=== PATIENT | female | born 2000 | race Caucasian/White ===

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

== ENCOUNTER 2020-01-13 18:49 | Emergency (ER) | payer MEDICAID, SELFPAY ==
[2020-01-13 18:50] VITALS: BP 151/98; PULSE 111; RESP 20; TEMP 36.3; O2SAT 99; BMI 35.2
--- NOTE | 2020-01-13 18:59 | CT_ITS ---
STUDY: CT BRAIN WITHOUT CONTRAST REASON FOR EXAM: Female, 19 years old. FALL, INJURY TO FOREHEAD AND NOSE, NO LOC RADIATION DOSAGE (If Supplied By Facility): CTDIvol = ( 44.99 ) mGy, DLP = ( 762.36 ) mGycm TECHNIQUE: Transaxial CT imaging of the brain was performed without administration of intravenous contrast material. Individualized dose optimization techniques were used for this CT. COMPARISON: No relevant priors. FINDINGS: Normal soft tissue structures. Normal calvarium. Normal size ventricles and extra-axial spaces for the patient''s age. Normal white matter tracts of the cerebral hemispheres. Normal basal ganglia and thalami. Normal brainstem. Normal cerebellum. There is no intracranial hemorrhage. There are no findings of an acute ischemic infarction. Normal visualized paranasal sinuses. CT/Brain/Head without Contrast IMPRESSION: No fracture or hemorrhage. Electronically Signed: Ray Perdomo MD at 20:00 EDT Tel , Service support ,
--- NOTE | 2020-01-13 18:59 | CT_ITS ---
STUDY: CT CERVICAL SPINE WITHOUT CONTRAST REASON FOR EXAM: Female, 19 years old. FALL, INJURY TO FOREHEAD AND NOSE, NO LOC RADIATION DOSAGE (If Supplied By Facility): CTDIvol = ( 25.44 ) mGy, DLP = ( 557.56 ) mGycm TECHNIQUE: High resolution transaxial imaging was performed without contrast material. Sagittal and coronal images were reconstructed. Individualized dose optimization techniques were used for this CT. COMPARISON: None FINDINGS: Normal craniovertebral junction, anterior atlantoaxial articulation, and odontoid process. Normal cervical alignment. No evidence of significant disc disease. No evidence of significant central canal stenosis. No fractures or dislocations. No significant soft tissue abnormalities. No paraspinal hematomas. CT/Spine Cervical without Contras IMPRESSION: No evidence of acute osseous injury. Please note that MRI is more sensitive than CT in detecting cord injury, ligament injury, and epidural hematoma. If there is clinical concern for any of these entities, MRI correlation should be considered, if possible. Electronically Signed: Rya Perdomo MD at 20:06 EDT Tel , Service support ,
--- NOTE | 2020-01-13 19:00 | CT_ITS ---
STUDY: CT FACIAL BONES WITHOUT CONTRAST REASON FOR EXAM: Female, 19 years old. FALL, INJURY TO FOREHEAD AND NOSE, NO LOC RADIATION DOSAGE (If Supplied By Facility): CTDIvol = ( 29.38 ) mGy, DLP = ( 554.80 ) mGycm TECHNIQUE: The patient was scanned in a multi detector CT scanner. Sagittal and coronal images were reconstructed. Individualized dose optimization techniques were used for this CT. COMPARISON: None. FINDINGS: Normal soft tissue structures. Normal orbital pimentel and orbital contents. Normal nasal bones and anterior nasal spine. Normal facial bones. There is no demonstrated fracture. Normal visualized paranasal sinuses. CT/Sinus/Facial Bone IMPRESSION: No acute osseous injury is evident. Electronically Signed: Ray Perdomo MD at 20:04 EDT Tel , Service support ,
--- NOTE | 2020-01-13 19:02 | ED.DCSUM_ITS ---
- ER Visit Summary Date of Service: 01/13/20 Chief Complaint: Head injury History of Present Illness: The patient is a 19 F presenting with head injury. Patient says she was not feeling well throughout the day. She had an episode of vomiting. She states she was cooking and felt dizzy and fell hitting her head on the counter. She denies loss of consciousness. She was vomiting before and after the fall. She denies abdominal pain. She is unsure if she could be . Denies fever or other complaints. Physical Examination: Vitals are stable. Patient is afebrile. Alert no acute distress. HEENT exam abrasion to forehead, tenderness bridge of nose, no septal hematoma. Neck is mild diffuse tenderness with no step-off Lungs are clear and equal bilaterally. Heart is regular tachycardic Abdomen is soft nontender nondistended. No rebound or guarding Extremities are unremarkable. Skin is warm and dry. No focal neurologic deficit. Remainder of exam is unremarkable. Emergency Department Course and Treatment: She is given IV fluids, Zofran. Chemistries unremarkable. hCG negative. CT head, C-spine, facial bones showed no acute process. On reevaluation her nausea has improved. She was given a dose of morphine IV. On reevaluation, she feels improved. Repeat heart rate is 75. She is resting comfortably. She is advised to follow-up with her primary care physician. Advised return to ED for worsening complaints. Disposition: Discharge home Impression: Concussion without loss of consciousness This note was generated with [employer] dictation software. It may contain incorrect words, spelling, and punctuation that were not noted in review of the chart prior to signing ED Disposition - Plan for ED Patient: Instructions: ED Concussion Referrals: Armani Hurtado MD [Primary Care Provider] -
[2020-01-13] MEDS: Ondansetron 4 MG/2 ML Vial IV (19:13)
[2020-01-13] MEDS: 0.9% Normal Saline 1,000 ML 999 ML IV ×2 (19:16→20:37)
[2020-01-13 19:35] LABS: Anion Gap 7 (5-15); BUN 13 mg/dL (7-18); BUN/Creat Ratio 16.4 RATIO (10-20); Calcium,Total 9.1 mg/dL (8.5-10.1); Chloride 108 mmol/L (98-107); Creatinine, Serum 0.79 mg/dL (0.55-1.02); EST Glomerular Filtration Rate 99 mL/min (>60); Est Glom Filt Rate - Afr Amer 119 mL/min (>60); Estimated Creatinine Clearance 111.38 ml/min; Glucose 101 mg/dL (74-106); Sodium Level 141 mmol/L (136-145)
[2020-01-13 19:48] LABS: Internal QC Validated? YES +Cl - CLEAR BKGD; Pregnancy, Serum, hCG Quali. NEGATIVE Negative
[2020-01-13] MEDS: Morphine 4 MG/ML Syringe IV (20:40)
[2020-01-13 20:42] VITALS: BP 134/79; PULSE 78; RESP 16; O2SAT 100
--- NOTE | 2020-01-13 20:46 | ED.DEP ---
ED Disposition - Plan for ED Patient: Instructions: ED Concussion Referrals: Armani Hurtado MD [Primary Care Provider] -
[2020-01-13 20:59] VITALS: BP 136/76; PULSE 74; RESP 16; O2SAT 98
== END 2020-01-13 21:08 | disposition home or self-care (01) ==
LOC: ED 19:14
PROVIDERS: Emergency Provider Emergency Medicine; PCP Family Medicine
DX: S06.0X0A Concussion without loss of consciousness, initial encounter (principal); W18.30XA Fall on same level, unspecified, initial encounter; Y93.G3 Activity, cooking and baking; Y92.000 Kitchen of unspecified non-institutional (private) residence as the place of occurrence of the external cause; Y99.8 Other external cause status
CPT/HCPCS: 70450; 70486; 72125; 80048; 84703; 96361; 96374; 96375; 99283; J7030; A4216; J2405

== ENCOUNTER 2020-01-28 09:00 | Outpatient (RCR) | payer MEDICAID, SELFPAY ==
--- NOTE | 2020-01-28 11:29 | BH.COMM_ITS ---
Communication Note - Communication with Client Communication Note: Intial Paperwork reviewed and pt gave verbal consent via ZOOM during meeting with therapist on 01/24/20. [place] Suicide screening was also completed. Pt was scheduled to begin IOP groups this AM. Due to technology issues she was unable to participate at length. Plan is to retry again tomorrow.
--- NOTE | 2020-01-28 12:42 | BH.MTP ---
[facility] Treatment Plan - Patient Information Program Physician:: Dr. Zaria Mcwilliams Primary Therapist:: VIVEK Yao - Psychiatric Diagnoses Psychiatric Diagnoses:: Bipolar 1 disorder, most recent episode mixed, severe, without psychosis; PTSD; generalized anxiety disorder Diagnosis Code(s):: F31.63 - Estimated LOS Estimated LOS (in weeks):: 6 Problem/Goal #1 - Problem/Goal #1 Stated Goal:: Client will increase mood stability and decrease depressive symptoms, hopelessness, and passive thoughts of due to Bipolar I through Intensive Outpatient Program. Description of Barriers: Pt's distorted thoughts, chronic passive thoughts of , self-reported difficulties with consistency and follow-through, hx of ptsd impacting pt anxiety management, difficulties in securing consistent childcare services, financial strain, as well as limited healthy supports. Pt also reports chronic physical ailments which impact energy and motivation levels. Functional Impact: Currently MH symptoms are interfering with pt ability to function at baseline. Pt reports difficulties in maintaining consistent employment, increased interpersonal tensions, impacted pt ability to complete daily responsibilities, and resulted in increased mood dysregulation. Reports symptoms include hopelessness, worthlessness, increased racing thoughts and panic, difficulties in maintaining focus and motivation, financial strain, and difficulties completing daily responsibilities. Goal Relevant Strengths/Supports: Pt has a desire to improve her mental health, she is open, and receptive of trying a variety of different treatment approaches. - Objectives Objective #1 Stated Objective: Client will learn and utilize 2-3 healthy coping strategies to improve mood stability and better manage mental health symptoms. Interventions: Therapist will help client develop insight into mental health warning signs and triggers for mood dysregulation, as well as help her find strategies to better manage mood and prevent escalation of depressive symptoms. Discharge Criteria: Client will have met this goal when she can use at least 2 healthy coping strategies that effectively regulate mood and manage depressive symptoms. Target Date: 03/10/20 Review Date: 02/25/20 Objective #2 Stated Objective: Pt will decrease depressive and mood dysregulation symptoms AEB pt?s score on the DSM 5 cross-cutting measure and improve pt?s daily functioning. Interventions: Through groups and individual therapy, pt will be provided with education on common warning signs and triggers for mood dysregulation, cognitive distortions, mistaken beliefs, and identifying and combating negative self-talk. Therapist will assist pt with implementing improved emotion regulation skills, improving ability to complete daily responsibilities, as well as increasing healthy coping strategies. Discharge Criteria: Pt will have met this goal when pt?s score on the DSM 5 cross cutting measure for depression and irritability has been decreased and per pt?s report daily functioning has improved. Target Date: 03/10/20 Review Date: 02/25/20 Problem/Goal #2 - Problem/Goal #2 Stated Goal:: Stabilize anxiety level while increasing ability to function on daily basis. Description of Barriers: Pt's distorted thoughts, chronic passive thoughts of , self-reported difficulties with consistency and follow-through, hx of ptsd impacting pt anxiety management, difficulties in securing consistent childcare services, financial strain, as well as limited healthy supports. Pt also reports chronic physical ailments which impact energy and motivation levels. Functional Impact: Currently MH symptoms are interfering with pt ability to function at baseline. Pt reports difficulties in maintaining consistent employment, increased interpersonal tensions, impacted pt ability to complete daily responsibilities, and resulted in increased mood dysregulation. Reports symptoms include hopelessness, worthlessness, increased racing thoughts and panic, difficulties in maintaining focus and motivation, financial strain, and difficulties completing daily responsibilities. Goal Relevant Strengths/Supports: Pt has a desire to improve her mental health, she is open, and receptive of trying a variety of different treatment approaches. - Objectives Objective #1 Stated Objective: Client will learn and implement 2-3 calming skills to reduce overall anxiety and better manage trauma and anxiety related symptoms. Interventions: Therapist will aid client in identifying personal warning signs and triggers for anxiety, as well as teach client calming/relaxation skills and how to apply these skills to everyday life when experiencing increased anxiety or recognizing a personal warning signs. Discharge Criteria: Client will have achieved this goal when can verbalize at least 2 warning signs and calming strategies and have practiced techniques to help reduce anxiety. Target Date: 03/10/20 Review Date: 02/25/20 Objective #2 Stated Objective: Pt will decrease anxious symptoms AEB pt?s score on the DSM 5 cross-cutting measure improve pt?s daily functioning. Interventions: Through groups and individual therapy, pt will be provided education about anxiety?s impact on body and common physiological reaction to anxiety. Therapist will teach pt appropriate breathing techniques and build healthy coping skills to manage daily anxieties. Discharge Criteria: Pt will have met this goal when pt?s score on the DSM 5 cross cutting measure for anxiety has been decreased and per pt?s report daily functioning has improved. Target Date: 03/10/20 Review Date: 02/25/20
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
--- NOTE | 2020-01-29 11:42 | BH.NA ---
Physical Data - Vital Signs Pulse Rate: 84 Blood Pressure: 118/78 - Height/Weight Height: 1.7 m - stated Weight:: 97.522 kg - stated Weight in Pounds: 215.0 lbs Nutritional History - Appetite Nutritional Instructions:: If client shows signs of a swallowing problem, weight change of 10 pounds or more in the last month, or is on a diabetic diet, the physician will review and request a dietitian consult, as appropriate. All unintentional weight loss will be referred to the physician for decision on need for dietitian consult. Describe your appetite:: Good Have you noticed a change in your eating habits lately?: No - Client states appetite is ok Functional Assessment - Sleep Pattern Describe any problems with sleeping: Client states sleep is ok and getting approximately 6-8 hours nightly. - Activities Motor Activity:: Functional Sensory/Communication Assess - Communication Problems Do you have difficulty understanding what people are saying?: No Medical Problems/History - Respiratory Conditions Respiratory: Asthma - Family History Family History: Family History (Last Reviewed 04/10/19 @ 08:58 by Halina Hines) Other CVA (cerebral vascular accident) Colon cancer Heart disease Hypertension - Additional History Additional comments:: Client states h/o Anxiety, Bipolar 1 disorder, PTSD, Lupus Surgical History - Surgical History Have you had any surgeries? If so, list type and date:: Yes - , Lt knee Substance Abuse - Substance Abuse Please describe substance abuse in the last 30 days:: Client denies past or current use of alcohol. Client states past use of smoking tabacco for approximately one year but has since quit when law changed. Client denies past or current substance use. Client states consumes caffiene, drinking coffee daily. Mental Status Summary - Mental Status Significant Findings/Observations on Appearance and Mood:: Client is alert and oriented x4. Client is casually groomed. Client is cooperative with assessment, makes good eye contact during conversation. Client's speech with normal rate and volume, coherent, and spontaneous. Client appears mildly depressed and moderately anxious during assessment. Client tearful during assessment at times. Client makes logical associations, normal processing. Client denies delusions and hallucinations, none evident. Client appears with good insight and judgement. Suicide Assessment - Suicidal Ideation Are you currently or have you been suicidal in the past?: No - Client denies current SI/HI Suicidal Intentional Rating Scale (SIRS): Suicidal thoughts (past) - Client states that she has had past SI but denies current SI. Physician Notification: If Active suicidal thoughts/Will not contract for safety is checked, contact physician and document in the Physician Notification section below. Past Psychiatric History - MH Treatment Hx Past Psychiatric Medications:: Client states that she has been on past psychiatric medications consisting of; Trazadone, Risperidal, Zoloft, Ambien, an antianxiety of unknown name, and more recently stopped taking both Lexapro and Buspar approximately 4 days ago as she felt they were not working. Age of first mental health symptoms: Client states she was first diagnosed with mental health condition at 10yo. Describe (age, circumstance, etc) any past hospitalizations: Client states that she was first hospitalized at 9-10yo at [facility], states her last hospitalization was at 17yo. Client states has had multiple hospitalizations, 14 psych admits as an adolescent. Current providers for mental health treatment (counselor, psychiatrist, case assistant, etc.): Client states that she sees a therapist[facility] at [facility]. Client states that she last seen a psychiatrist about one month ago and has stopped seeing psychiatrist d/t personal chose. Fall Risk Assessment - Age Age: Less than 60 - Mental Status Mental Status: Willing & able to ask for assistance when needed - Physical Status Physical Status: No problems - Impairments Impairments: None - Elimination Elimination: Continent AND independent - Gait or Balance Gait or Balance: Walks independently - Hx of Falls History of falls in the past 6 months: No known history - Medications/Substances Medications/substances used within the past 24 hours or ordered to administer: None of the medications/substances list above - Total Score Total Points:: 0 RN Summary of Impressions - Impressions Recommendations: Include psychiatric and medical issues, treatment planning recommendations, and discharge planning needs. Impressions: Psychiatric Issues: Bipolar 1 disorder, most recent episode mixed, severe, without psychosis; PTSD; generalized anxiety disorder - Level of Care How do the client's current symptoms and functional deficits support need for this level of care?: Client details onset of current episode, stating it became worse around 9 months ago after having her child. Client states that she has had fleeting SI and self injurious behavior consisting of cutting, last cut her Left wrist last week- site appears well healed. Client reports current stressors; that she confided in a friend and that friend turned around and called CPS on her, her upbringing with her mother, and had to attend court this morning for a traffic violation that inhabited child endangerment. Client states that she has been randomingly crying and having panic attacks. IOP will promote gains and prevent further decompensation while providing social support and skills training.
[2020-01-29 12:45] VITALS: BP 118/78; PULSE 84
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
--- NOTE | 2020-01-29 13:10 | BH.DR.ITP ---
Initial Treatment Plan - Patient Information Visit Information: ADMISSION DATE: EXPECTED LOS: 4-6 weeks - Problems/Symptoms Problem #1:: Erratic moods Symptom:: Depression, hopelessness, worthlessness, low energy and motivation, passive thoughts, self-harm Problem #2:: Anxiety Symptom:: worry, panic attacks, avoidance, flashbacks, re-experiencing, rumination
--- NOTE | 2020-01-30 09:03 | BH.SGPN.GN ---
Behaviors/Verbalizations/Mental Status: []Client alert and oriented, neatly dressed and groomed. Eye contact fair. Motor activity appropriate. Speech within normal limits. Affect unable to gather due to wearing a mask for COVID-19 protocol, mood depressed, anxious, irritable. Thoughts linear, logical, no signs of hallucinations or delusions. Reviewed client?s symptom tracker, no risk for suicidal ideation, plan, or intent as of 01/30/20. Client Response/Progress/Benefit: []Client responded somewhat well to session, listening attentively to peers, but declining to share. Client appeared receptive to supportive statements from peers as they attempted to make client feel welcome to IOP and normalize anxiety in a group setting. Client declined to share her stressors and positives today. Appeared to benefit from gaining support from peers. No progress at this time. Will continue IOP tx to prevent decompensation, maintain safety, and increase use of healthy coping skills. Narrative Note: []
--- NOTE | 2020-02-03 09:05 | BH.SGPN.GN ---
Behaviors/Verbalizations/Mental Status: [] Client alert and oriented, casual dress. Eye contact fair to good. Motor activity appropriate. Speech within normal limits. Affect unable to gather due to client wearing a mask for COVID-19 protocol, mood depressed and anxious. Thoughts linear, logical, no signs of hallucinations or delusions. Reviewed client?s symptom tracker, no signs of suicidal ideation, plan, or intent as of today. Client Response/Progress/Benefit: []Pt receptive of session, engaged throughout. Reports feeling mixed, but mostly anxious today as she is still adjusting to the group environment and is nervous but excited to begin individual treatment component of the program. Reports she has been struggling with knowing how to best manage her anxiety and depression as she has not previously learned healthy means for coping. Pt expressed hoping to improve coping skills and increase self-esteem. Expressed that she recently has been struggling with depression as well. Receptive of feedback from the group regarding boundary setting as a means of improving self-esteem, however noted struggling to follow-through with healthy boundaries. Pt able to current mental health wins as using opposite action to keep from staying in bed and took her son to the park. Additional win was beginning to feel like her current medication is starting to help. Pt appeared to benefit from support and structure of the group. Will continue IOP tx to promote more consistent mood stability, improve daily functioning, and prevent decompensation. Narrative Note: []
--- NOTE | 2020-02-03 11:16 | BH.SGPN.GN ---
Behaviors/Verbalizations/Mental Status: []Client alert and oriented, casually dressed and groomed. Eye contact good. Motor activity appropriate. Speech within normal limits. Affect unable to gather due to client wearing a mask for COVID-19 protocol, mood depressed. Thoughts linear, logical, no signs of hallucinations or delusions. Client Response/Progress/Benefit: []Client engaged participant as evidenced by client taking notes and listening attentively to peers. Client participated in the discussion of how each resiliency component can help increase personal resiliency. Client identified resiliency traits she currently possesses and then identified what trait she would like to improve. Client reports belief she has been using the resiliency trait of making connections. Client stated she would like to work on avoiding seeing crises as insurmountable. Client reported ?when I?m in crisis I can?t think past it.? Client shared she would like to improve her crisis coping skills. Client appeared to benefit from increasing insight to ways in which client can improve resilience to adversity and daily stressors. Client to continue IOP tx to prevent decompensation, improve emotional regulation skills, and maintain safety. Narrative Note: []
--- NOTE | 2020-02-03 15:07 | BH.MDN_ITS ---
Multi-Disciplinary Note - Note 45-min Individual Time Started:: 10:20 Date: 02/03/20 Purpose of session/treatment goals addressed:: The purpose of this session was to gather information on client's current stressors, symptoms, and treatment goals. Another goal was to build rapport and provide psychoeducation on depression maintenance cycles and calming skills. Eye Contact:: Good Motor Activity:: Appropriate Appearance:: Casual Speech:: Appropriate Mood:: Anxious, Depressed Affect:: Congruent Thoughts:: Linear, Logical, No evidence of hallucinations/delusions noted Staff Interventions:: Therapist used active listening and open-ended questions to explore client's current stressors, symptoms, history, and treatment goals. Therapist used strengths perspective to build rapport and help client identify personal resilience factors. Therapist provided psychoeducation on anxiety, depression, and maintenance cycles. Therapist began to review with client how common unhealthy coping skills develop and discussed healthy alternatives. Client Response:: Client responded well to session, open to meeting with therapist. Client willing to share about her personal history and events leading up to [facility] level of care. Client stated that she was referred to the IOP program by her individual therapist, Nhi, at [facility] for increased depression, anxiety, and PTSD related symptoms following the of her son 9 months ago. Client reports her symptoms were further exacerbated when she disclosed information about her childhood to a friend who did not believe client and informed child protective services that she was psychotic and an unfit mother. Client reports this further damaged her ability to trust others as she has already struggled with this in the past. Reports she has been in and out of therapy since childhood and most recently [facility] he left for another agency. Client now works with Nhi through [employer]. Shared that although she initially was reluctant to begin the IOP program she is now looking forward to better learning how to manage her emotions and symptoms of PTSD, as well as improve overall ability to find healthier balance in her life. Client identified her strengths for therapy to include; being a caring mother and , being a dedicated employee, motivated to improve her mental health, and willing to learn new things. Client also identified current struggles which included; feeling overwhelmed, lack of support in the area, financial stress, feeling her mental health needs are not being taken seriously, anxiety and recent traumatic flashbacks/dreams, increased guilt about her depression, and fears her mental health will negatively impact her son. Client receptive to learning more about her mental health, the cycle of depression, and gaining healthy coping skills. Client shared she wants to work on managing stress/increased parental responsibilities, reducing anxiety, and improving depression management. Risks/Concerns:: Client denies any active suicidal ideations, plan, or intent as of 02/03/20. Client was future oriented throughout session. Reports her son and as primary protective factors. Progress Toward Goals/Plan:: Client new to IOP tx. Client referred to IOP program by individual therapist for worsening depression and anxiety, including passive thoughts of . Denies any current suicidal thoughts. Currently endorses a depressed mood, irritability, ruminating thoughts resulting in increased anxiety, negative thinking, low motivation, and apathy. Client shared she has limited social supports and difficulties trusting others due to being hurt in the past. Receptive to learning more about her mental health and gaining coping skills. Will continue IOP tx to prevent decompensation, improve daily functioning, and reduce intensity and duration of symptoms. Time Stopped:: 11:05
== END 2020-02-04 23:59 ==
LOC: BHIOP 09:00
PROVIDERS: PCP Family Medicine; Referring Provider Psychiatry & Neurology Psychiatry; Visit Provider Psychiatry & Neurology Psychiatry
DX: F31.63 Bipolar disorder, current episode mixed, severe, without psychotic features (principal); F41.1 Generalized anxiety disorder; F43.10 Post-traumatic stress disorder, unspecified; Z79.899 Other long term (current) drug therapy; Z87.891 Personal history of nicotine dependence; Z91.5 Personal history of self-harm; Z62.810 Personal history of physical and sexual abuse in childhood
CPT/HCPCS: 90792; H0035; H2012; T1002; 90834

== ENCOUNTER 2020-02-05 09:00 | Outpatient (RCR) | payer MEDICAID, SELFPAY ==
[2020-02-05 00:39] VITALS: BP 118/78; PULSE 84
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
--- NOTE | 2020-02-05 13:42 | PCM.BH.PN_ITS ---
Progress Note Progress Note: History of Present Illness/Interim History: [] The patient is a 19-year-old female with a history of bipolar disorder, anxiety and PTSD who is seen in follow-up at the [facility] IOP program. I last saw the patient 1 week ago and at that time she was started on Latuda for her bipolar depression. The patient complains of nausea and vomiting and irritability due to the Latuda. She has taken it for about 1 week and takes it with a meal in the evening. She says her mood she feels is better on the Latuda but she still has some anger and irritability. She is vomiting 20 to 30 minutes after she takes her Latuda. Patient is enjoying the IOP program so far and she feels she is learning skills that will help her deal with her psychiatric issues. Her mood remains depressed and she is really only slightly better than 1 week ago. She denies any suicidal ideation and has much less thoughts of . She denies hallucinations or delusions or any other symptoms. Current Psychiatric Medications: [] Latuda 40 mg p.o. in the evening with food. BuSpar 10 mg p.o. twice a day. She DC'd her Lexapro 1 week ago. Mental Status Examination: [] She is a 19-year-old female who is seen wearing a mask due to the pandemic. She is casually dressed and groomed with good hygiene. She is cooperative during the interview and has no psychomotor agitation or retardation. Eye contact is good. Speech is normal rate and rhythm and fluent with no pressure. Her mood is depressed. Her affect is constricted but there is no evidence of tears. Thought processes organized and goal-directed. Thought content: No evidence of suicidal or homicidal ideation. There is much less thoughts that are passive that she would not care if she . She did not note denies any cutting. Judgment is limited but intact. Insight: Some present. Impulsivity: Moderate. Diagnoses: [] Grawn I: [] Bipolar 1 disorder, most recent episode mixed, severe, without psychosis; PTSD; generalized anxiety disorder. Grawn II: [] Strong cluster B traits Grawn III: [] Negative Grawn IV:[]] Primary support issues Plan: []the patient will continue the IOP program at [facility] as the structure, support, education, individual and group therapy will hopefully prevent worsening of the patient's symptoms which might require hospitalization. The patient felt safe during the interview and if any time she does not feel safe she will let us know or go to the emergency room. The risk, options, possible side effects and complications of the medication were discussed with the patient and she understands and accepts these. She agrees to stop the Latuda due to her side effects. Because the patient did well on Risperdal in the past she agrees to try in Alcazar or paliperidone which is similar but has less of the side effects that Risperdal has. She will start with Invega 1.5 mg p.o. daily. A prescription was sent in for this. I will see the patient in 1 week in follow-up. She will continue to follow-up with her outpatient providers.
--- NOTE | 2020-02-10 09:05 | BH.SGPN.GN ---
Behaviors/Verbalizations/Mental Status: [] Eye contact is good. Motor activity is appropriate. Appearance is casual. Speech is Appropriate. Mood is anxious. Affect is congruent. Thoughts are linear and logical. No evidence of psychosis. Reviewed daily check in sheet and no reports of suicidal ideations or intent. Client Response/Progress/Benefit: [] Pt participated at time during the group discussions. Daily symptom tracker notes /5 for anxiety, panic, and agitation. Emotion for today is anxious and stressed. Shared with the group that she was terminated from her job last week due to calling off. 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 Panic attack. Also reports verbal arguments with and stress related to finances. Despite these negative events she reports that she actually used some coping skills which included distraction, mindfulness, and thought reframing. Also believes that recent medication change has improved her mood as well. Progress noted per pt report. Benefited from group support, encouragement, and feedback. Will continue in IOP to maintain safety, prevent decompensation, and increase coping skills. Narrative Note: []
--- NOTE | 2020-02-10 11:15 | BH.SGPN.GN ---
Behaviors/Verbalizations/Mental Status: []Client alert and oriented, casually dressed, hygiene appeared to be tended to. Eye contact good. Motor activity appropriate. Speech within normal limits. Affect unable to gather due to wearing a mask for COVID-19 protocol, mood irritable and depressed. Thoughts linear, logical, no signs of hallucinations or delusions Client Response/Progress/Benefit: []Client responded well to session, attentive and mostly passive. Group discussed the negative consequences of not acknowledging one?s strengths. Connected with the benefits of recognizing personal strengths on improving mental health which included: increased self-confidence, increased willingness to try new things, and better management of symptoms. Client able to identify personal strengths she possesses which includes: leadership, persistence, and love. Client did not share how these strengths have helped her or could help client in her mental health journey. Group discussed strategies to help them acknowledge strengths more often. Appeared to benefit from recognizing personal strengths and identifying strategies to increase recognition of strengths. Will continue IOP tx to prevent decompensation of symptoms, learn healthy coping skills, and improve daily functioning. Narrative Note: []
--- NOTE | 2020-02-10 15:13 | BH.MDN ---
Multi-Disciplinary Note - Note 45-min Individual Time Started:: 10:10 Date: 02/10/20 Purpose of session/treatment goals addressed:: Pt requested to speak with a therapist individually due to recent stressors. Eye Contact:: Fair Motor Activity:: Appropriate Appearance:: Casual Speech:: Appropriate Mood:: Irritable, Depressed Affect:: Congruent Thoughts:: Linear, Logical, No evidence of hallucinations/delusions noted Staff Interventions:: utilized active listening and SC techniques. Allowed pt to vent. Praised her for utilizing skills learned in group. Client Response:: Pt shared that she had an emotionally overwhelming weekend. She was let go from her job on Monday due to calling in sick. Verbalized that while she was discussing this with her first line production supervisor she felt disrespected. Reports that her first line production supervisor called her worthless and was extremely rude. Pt began to ruminate on this event and beleived that she was worthless. This along with some verbal arguemts with her caused significant distress. She vented her thoughts, frustrations, and emotions which was the primary reason for the session. Despite the setbacks pt was optimistic as she is hopeful about a new job through a [employer] agency which pays better and has better hours. She also utilized coping skills that she has learned through group which helped minimize her distress. Also feels that the medication that she recently started has also improved her mood. Risks/Concerns:: Denies suicidal ideations, plan, or intent. Protective factors. Future-oriented. Progress Toward Goals/Plan:: Despite setbacks this week progress noted. Pt reports improved mood and increased confidence in her ability to handle stressors. Notes that 3 weeks ago she would have isolated and given up when presented with stressors however this weekend she utilized skills and was able to reframe negative thoughts. Will continue in IOP to increase coping skills, improve functioning, and prevent decompensation. Time Stopped:: 11:00
--- NOTE | 2020-02-12 12:38 | BH.COMM ---
Communication Note - Communication with Client Communication Note: Client scheduled to meet with this therapist for individual sessiojn as well as psychiatry for regular follow-up. Client did not show for scheduled appointments or call to cancel. This therapist reached out to client to follow-up and client indicated her son had been sick all night and therefore was unable to send him to childcare. Client indicates that she will be in group tomorrow for both group and individual sessions.
--- NOTE | 2020-02-13 09:42 | BH.COMM ---
Communication Note - Communication with Client Communication Note: Client scheduled for individual and group sessions on this date, however did not show or call to cancel. Therapist attempted to contact client to follow-up but was unable to reach client. A discrete message was left encouraging client to return this therapist's call and discuss discuss strategies for supporting client in attending more consistently.
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
== END 2020-02-26 14:00 | disposition home or self-care (01) ==
LOC: BHIOP 09:00
PROVIDERS: PCP Family Medicine; Referring Provider Psychiatry & Neurology Psychiatry; Visit Provider Psychiatry & Neurology Psychiatry
DX: F31.63 Bipolar disorder, current episode mixed, severe, without psychotic features (principal); F43.10 Post-traumatic stress disorder, unspecified; F41.1 Generalized anxiety disorder; Z79.899 Other long term (current) drug therapy
CPT/HCPCS: 99214; H0035; H2012; 90834

== ENCOUNTER 2020-04-24 20:59 | Emergency (ER) | payer MEDICAID, SELFPAY ==
[2020-04-24 21:01] VITALS: BP 153/80; PULSE 91; RESP 18; TEMP 36.4; O2SAT 99; BMI 37.3
--- NOTE | 2020-04-24 21:38 | RAD_ITS ---
HISTORY: LEFT KNEE PAIN Technique: Left Knee; AP, lateral, and oblique radiographs Comparison: None available Findings: No acute fracture or dislocation. Osseous mineralization, joint spaces, and alignment otherwise appear preserved as imaged. No focal abnormality or radiopaque foreign body is seen in the surrounding soft tissues. RAD/Knee 4 or More Views IMPRESSION: No acute osseous abnormality identified in the knee. at 2246 Reported and signed by: Ryan Oswald MD Electronically Signed: Ryan Oswald MD at 22:45 EDT Tel , Service support ,
--- NOTE | 2020-04-24 23:13 | ED.VIS.LOWEX ---
History of Present Illness Chief Complaint: Lower Extremity Injury Informant: Patient Onset: Month(s) Context: Gradual Onset Timing: Intermittent, Waxes and wanes Quality of Pain: Sharp, Aching Narrative: Patient is a 20-year-old female with history of hypoglycemia presenting with worsening pain in her left knee. Patient states she is had pain for months that is aching in nature but sometimes becomes sharp and stabbing. She does not have any aggravating or alleviating factors. She feels that sometimes her knee gives out on her. Tonight she was at work and she went to stop a shopping carts when she lost her balance and fell. She denies any new injury to her knee but decided to get it evaluated because is been going on for so long. Patient is not been taking anything for pain including Tylenol or ibuprofen. She does like she has some swelling of her knee. No numbness or tingling. No other complaints at this time. Past Medical History - Allergies and Home Meds Allergies/Adverse Reactions: Allergies zolpidem [From Ambien] Adverse Reaction (Verified 04/24/20 21:03) Other HALLUCINATIONS Primary Care Physician: Armani Hurtado MD [Primary Care Provider] - Past Medical History: - - hypoglycemia Surgical History: tonsillectomy Smoking Status: Never smoker Review of Systems General: Denies: Chills, Fever, Sweats Eyes: Denies: Visual changes - bilaterally, Diplopia ENT: Denies: Rhinorrhea, Sore throat Cardiovascular: Denies: Chest pain, Palpitations Respiratory: Denies: Dyspnea, Cough, Dyspnea on exertion Gastrointestinal: Denies: Abdominal pain, Nausea, Vomiting, Diarrhea, Melena, Hematochezia Genitourinary: Denies: Dysuria, Hematuria, Frequency Musculoskeletal: Reports: Swelling - left knee , Extremity Pain - left knee . Denies: Back pain Skin: Denies: Rash, Wounds Neurological: Denies: Headache, Weakness, Numbness Physical Exam Vital Signs/Narrative: Vital Signs Temp Pulse Resp BP Pulse Ox 04/24/20 21:01 97.6 F L 91 18 153/80 H 99 Inital Vital Signs reviewed: Yes - Extremity Exam Left Hip: Negative for: Deformity, Edema, Limited ROM Left Femur: Negative for: Deformity, Edema, Limited ROM Left Knee: Edema, - - Mild increased laxity with medial stress of the knee. Negative anterior and posterior drawer test. No significant effusion or warmth appreciated.. Negative for: Deformity, Limited ROM Left Tib Fib: Negative for: Deformity, Edema, Hematoma, Limited ROM Left Ankle: Negative for: Deformity, Edema, Limited ROM Left Foot: - - 2+ DP pulses. Negative for: Deformity, Edema, Hematoma, Limited ROM General: Well nourished, Well developed Head: Normocephalic, Atraumatic Eyes: Perrl, EOMI ENT: No Trauma, Moist Mucous Membranes Neck: Nontender, Full ROM Cardiovascular: Regular rate, Regular rhythm, No murmurs Respiratory: No distress, CTA bilaterally, Chest nontender Abdomen: Soft, Nontender Back: Nontender Skin: Normal color, No rash Neurological: Alert, Oriented x3, Cranial nerves II-XII grossly intact, Normal Strength, Normal Sensation Psychological: Normal affect Diagnostic/Tx/Re-eval Clinical Impression(s) from Imaging Studies Knee X-Ray 04/24/20 21:38 IMPRESSION: No acute osseous abnormality identified in the knee. at 2246 Reported and signed by: Ryan Oswald MD Electronically Signed: Ryan Oswald MD at 22:45 EDT Tel , Service support , - Medical Decision Making Patient evaluated for atraumatic left knee pain is been worsening over the past few months. I question she has a meniscal injury given that she does have clean of the knee. She will be given orthopedics for follow-up. She was started on NSAID therapy. She is given an Saurabh wrap as well. She is counseled on rice therapy. X-rays not show any acute process. Patient is counseled on signs and symptoms requiring return to the emergency room. Patient verbalizes agreement and understand this plan. Patient discharged home in stable and improved condition. ED Disposition - Plan for ED Patient: Disposition: Home or Assisted Living Diagnosis: Left knee pain Instructions: ED Knee Pain [facility] Prescriptions: Ibuprofen [Motrin] 600 mg PO Q6H PRN PRN #20 tab PRN Reason: Pain Score 1-10/10 Transmission Status: Pending to [facility] Referrals: Armani Hurtado MD [Primary Care Provider] - Eneida Talavera DO [STAFF PHYSICIAN] - Additional Instructions: Please take the anti-inflammatories, ibuprofen, up to 4 times a day as needed for pain and this will help with inflammation. Wear an Saurabh wrap especially at work to help with stability of the knee. Follow-up with orthopedics. Call Monday to schedule appointment.
[2020-04-24] MEDS: Ibuprofen 600 MG Tablet PO (23:16)
[2020-04-25] VITALS: PULSE 69; RESP 15; O2SAT 98
== END 2020-04-25 00:02 | disposition home or self-care (01) ==
PROVIDERS: Emergency Provider Emergency Medicine; PCP Family Medicine
DX: M25.562 Pain in left knee (principal)
CPT/HCPCS: 73564; 99283

== ENCOUNTER 2020-05-03 21:46 | Emergency (ER) | payer MEDICAID, SELFPAY ==
[2020-05-03 21:47] VITALS: BP 143/101; PULSE 120; RESP 18; TEMP 37.1; O2SAT 99; BMI 37.5
--- NOTE | 2020-05-03 21:55 | ED.DCSUM_ITS ---
History of Present Illness Chief Complaint: Shortness of Breath Informant: Patient Onset: Days Context: Gradual Onset Timing: Continuous Current Severity: Moderate Maximum Severity: Moderate Narrative: Patient is a 20-year-old female with medical history significant for asthma the presents to the emergency department with cough and dyspnea. The patient states her symptoms again about 3 days ago. She is had some nasal congestion and a dry cough. She states that she is tried her nebulizer with little improvement. She is had low-grade fevers for 2 days. The patient did have similar symptoms in November. She was tested for COVID-19. It was negative, however she had bilateral patchy infiltrates on a chest CT. She states that she seemed to have recovered from that. She states that she has not been on any prednisone burst for at least 6 months. Prior similar symptoms: Yes Recent Illness/Hospitalization: No Past Medical History - Allergies and Home Meds Allergies/Adverse Reactions: Allergies zolpidem [From Ambien] Adverse Reaction (Verified 05/03/20 21:47) Other HALLUCINATIONS Primary Care Physician: Armani Hurtado MD [Primary Care Provider] - Prior records reviewed: Yes Past Medical History: - - Asthma Surgical History: noncontributory, tonsillectomy Smoking Status: Never smoker Review of Systems General: Reports: Fever. Denies: Chills, Sweats Eyes: Denies: Visual changes - bilaterally, Diplopia ENT: Denies: Rhinorrhea, Sore throat Cardiovascular: Denies: Chest pain, Palpitations Respiratory: Reports: Dyspnea, Cough. Denies: Dyspnea on exertion Gastrointestinal: Denies: Abdominal pain, Nausea, Vomiting, Diarrhea, Melena, Hematochezia Genitourinary: Denies: Dysuria, Hematuria, Frequency Musculoskeletal: Denies: Back pain, Extremity Pain Skin: Denies: Rash, Wounds Neurological: Denies: Headache, Weakness, Numbness Physical Exam Vital Signs/Narrative: Vital Signs Temp Pulse Resp BP Pulse Ox 05/03/20 21:47 98.8 F 120 H 18 143/101 H 99 Inital Vital Signs reviewed: Yes General: Well nourished, Well developed, No Acute Distress Head: Normocephalic, Atraumatic Eyes: Perrl, EOMI ENT: Moist mucous membranes, No rhinorrhea Neck: Supple, Nontender Cardiovascular: Regular rate, Regular rhythm, No murmurs Respiratory: No distress, Chest nontender, Wheezing Abdomen: Soft, Nontender, Nondistended, Normal bowel sounds Back: Nontender, Normal Inspection Extremities: Nontender, No edema Skin: Normal color, No rash Neurological: Alert, Oriented x3, Cranial nerves II-XII grossly intact, Normal Strength, Normal Sensation Psychological: Normal affect, Normal Mood Diagnostic/Tx/Re-eval Clinical Impression(s) from Imaging Studies Chest X-Ray 05/03/20 22:00 IMPRESSION: Normal x-ray examination of the chest. Electronically Signed: Bart Zayas MD at 22:11 EDT , Service support , - Medical Decision Making Patient presents with cough, shortness of breath, and fever. I do feel that she likely has upper respiratory illness that is exacerbated her asthma. She had some prolonged expiration with a scant wheeze. The patient was given predni sone, Tylenol, and nebulized breathing treatment. Chest x-ray is obtained. There is no focal infiltrative process. After treatment, she is feeling improved. Given her fevers for 3 days, I am going to cover her with Zithromax and prednisone. She has no tachypnea or hypoxia. She speaks in full sentences. She has no respiratory distress. I do feel that she is safe for outpatient therapy. She is comfortable with this plan of care. Impression 1. Acute bronchitis with bronchospasm ED Disposition - Plan for ED Patient: Instructions: ED Upper Resp Infec Abx Tx Prescriptions: Prednisone [Deltasone] 60 mg PO DAILY #15 tab Prescription Printed Azithromycin [Zithromax] 250 mg PO DAILY #4 tab Prescription Printed Referrals: Armani Hurtado MD [Primary Care Provider] -
[2020-05-03 22:00] VITALS: BP 128/72; PULSE 89; RESP 16; O2SAT 98
--- NOTE | 2020-05-03 22:00 | RAD_ITS ---
STUDY: X-RAY CHEST REASON FOR EXAM: Female, 20 years old. dry cough x 1 week, fever, chills TECHNIQUE: Frontal and lateral views of the chest. COMPARISON: 11/11/2019 FINDINGS: The lungs are clear and expanded. There is no demonstrated pleural abnormality. Normal size heart. Normal mediastinum and laith. Normal visualized pulmonary arteries. Normal visualized aortic arch and descending thoracic aorta. Normal visualized thoracic spine. Normal visualized ribs, clavicles, and shoulders. There is no demonstrated abnormality of the visualized soft tissue structures of the upper abdomen. RAD/Chest PA and Lateral IMPRESSION: Normal x-ray examination of the chest. Electronically Signed: Bart Zayas MD at 22:11 EDT , Service support ,
[2020-05-03 22:08] VITALS: PULSE 118; RESP 16
[2020-05-03] MEDS: Ipratropium/Albuterol Sulfate 3 ML AMPUL.NEB INHALATION (22:08)
[2020-05-03] MEDS: Azithromycin 250 MG Tablet 500 MG PO (22:31)
[2020-05-03] MEDS: predniSONE 20 MG Tablet 60 MG PO (22:31)
[2020-05-03] MEDS: Acetaminophen 500 MG Tablet 1000 MG PO (22:32)
== END 2020-05-03 22:30 | disposition home or self-care (01) ==
LOC: ED 22:30
PROVIDERS: Emergency Provider Emergency Medicine; PCP Family Medicine
DX: J20.9 Acute bronchitis, unspecified (principal)
CPT/HCPCS: 71046; 94640; 99282

== ENCOUNTER 2020-05-30 20:46 | Emergency (ER) | payer MEDICAID, SELFPAY ==
[2020-05-30 20:46] VITALS: BP 140/82; PULSE 87; RESP 16; TEMP 36.4; O2SAT 98; BMI 37.2
--- NOTE | 2020-05-30 20:53 | CT_ITS ---
STUDY: CT BRAIN WITHOUT CONTRAST REASON FOR EXAM: Female, 20 years old. MIGRAINE X 3 WEEKS, pain all over head. Not pergnant-pt shielded RADIATION DOSAGE (If Supplied By Facility): CTDIvol = ( 44.99 ) mGy, DLP = ( 796.11 ) mGycm TECHNIQUE: Transaxial CT imaging of the brain was performed without administration of intravenous contrast material. Individualized dose optimization techniques were used for this CT. COMPARISON: Prior head CT exam of 01/13/2020 FINDINGS: Normal soft tissue structures. Normal calvarium. Normal size ventricles and extra-axial spaces for the patient''s age. Normal white matter tracts of the cerebral hemispheres. Normal basal ganglia and thalami. Normal brainstem. Normal cerebellum. There is no intracranial hemorrhage. There are no findings of an acute ischemic infarction. Normal visualized paranasal sinuses. CT/Brain/Head without Contrast IMPRESSION: Normal unenhanced CT scan of the brain. Electronically Signed: Trinidad Stanford MD at 21:50 EDT , Service support ,
--- NOTE | 2020-05-30 20:54 | ED.DCSUM_ITS ---
History of Present Illness Chief Complaint: Headache Informant: Patient Onset: Weeks Context: Gradual Onset Timing: Continuous Current Severity: Moderate Maximum Severity: Moderate Narrative: The patient presents to the emergency department migraine headache. Patient states that she has had a persistent headache for the past 2 or 3 weeks. She denies any significant history of migraines. She describes a dull pressure behind her eyes. She does describe photophobia and phonophobia. She has been nauseated without vomiting. She went to urgent care last week and was counseled on hydration and ibuprofen. She states that she has been doing that with no resolution of her headache. She denies neck pain. She denies any fevers or chills. She denies any visual change. She states she is otherwise been in her normal state of health. Prior similar symptoms: No Recent Illness/Hospitalization: No Past Medical History - Allergies and Home Meds Allergies/Adverse Reactions: Allergies zolpidem [From Ambien] Adverse Reaction (Verified 05/30/20 20:48) Other HALLUCINATIONS Primary Care Physician: Armani Hurtado MD [Primary Care Provider] - Prior records reviewed: Yes Past Medical History: None Surgical History: noncontributory, tonsillectomy Smoking Status: Never smoker Review of Systems General: Denies: Chills, Fever, Sweats Eyes: Denies: Visual changes - bilaterally, Diplopia ENT: Denies: Rhinorrhea, Sore throat Cardiovascular: Denies: Chest pain, Palpitations Respiratory: Denies: Dyspnea, Cough, Dyspnea on exertion Gastrointestinal: Denies: Abdominal pain, Nausea, Vomiting, Diarrhea, Melena, Hematochezia Genitourinary: Denies: Dysuria, Hematuria, Frequency Musculoskeletal: Denies: Back pain, Extremity Pain Skin: Denies: Rash, Wounds Neurological: Denies: Headache, Weakness, Numbness Physical Exam Vital Signs/Narrative: Vital Signs Temp Pulse Resp BP Pulse Ox 05/30/20 20:46 97.5 F L 87 16 140/82 H 98 Inital Vital Signs reviewed: Yes General: Well nourished, Well developed, No Acute Distress Head: Normocephalic, Atraumatic Eyes: Perrl, EOMI ENT: Moist mucous membranes, No rhinorrhea Neck: Supple, Nontender Cardiovascular: Regular rate, Regular rhythm, No murmurs Respiratory: No distress, CTA bilaterally, Chest nontender Abdomen: Soft, Nontender, Nondistended, Normal bowel sounds Back: Nontender, Normal Inspection Extremities: Nontender, No edema Skin: Normal color, No rash Neurological: Alert, Oriented x3, Cranial nerves II-XII grossly intact, Normal Strength, Normal Sensation Psychological: Normal affect, Normal Mood Diagnostic/Tx/Re-eval Clinical Impression(s) from Imaging Studies Brain CT 05/30/20 20:53 IMPRESSION: Normal unenhanced CT scan of the brain. Electronically Signed: Trinidad Stanford MD at 21:50 EDT , Service support , - Medical Decision Making Patient presents with migraine headache. She is not meningitic or enceph alopathic. She states she does not have a significant history of migraines. IV was established. The patient was treated with migraine abortive medications with complete resolution of her headache. Given her lack of history, I did obtain a head CT. This was negative. Given the duration of her symptoms, I do not suspect a dangerous process. I do feel that she is safe for outpatient follow-up. She is comfortable with this plan of care and will be discharged home. Impression 1. Migraine ED Disposition - Plan for ED Patient: Instructions: ED, Migraine (Classical) Referrals: Armani Hurtado MD [Primary Care Provider] -
[2020-05-30] MEDS: 0.9% Normal Saline 1,000 ML 999 ML IV (21:03)
[2020-05-30] MEDS: proCHLORPERazine 10 MG/2 ML Vial IV (21:05)
[2020-05-30] MEDS: Ketorolac 15 MG/ML Vial IV (21:08)
[2020-05-30] MEDS: DiphenhydrAMINE 50 MG/ML Syringe IV (21:10)
[2020-05-30 21:58] VITALS: BP 114/82; PULSE 48; RESP 15
== END 2020-05-30 22:00 | disposition home or self-care (01) ==
LOC: ED 21:12
PROVIDERS: Emergency Provider Emergency Medicine; PCP Family Medicine
DX: G43.909 Migraine, unspecified, not intractable, without status migrainosus (principal)
CPT/HCPCS: 70450; 96374; 96375; 99282

== ENCOUNTER 2023-11-02 05:40 | Emergency (ER) | payer MEDICAID, SELFPAY ==
[2023-11-02 05:41] VITALS: BP 111/74; PULSE 80; RESP 17; TEMP 36.2; O2SAT 98; BMI 42.3
--- NOTE | 2023-11-02 05:50 | EX.ED.DYSGE1 ---
HPI History of Present Illness Chief Complaint: Other, Pain/Inj Narrative Narrative: 23-year-old female presents with left-sided neck pain and muscle spasms that she has had since she woke up this morning. She states that over the last few days since Monday when she was traveling to [place], 6 days ago, she was having neck pain. She is been treating it with Tylenol and heat which has been working. However, she awoke with this morning, muscle spasms mainly on the left side of her neck and inability to turn her head secondary to pain. She denies any fevers or chills, no nausea or vomiting. No other symptoms. Her pain is at the base of her neck and into her left trapezius. She relates history that 2 years ago she tore her left shoulder so she cannot really move her left shoulder that well. Her dropped her off because she states that she is having continued and spasming. [facility] Medical History Anxiety Asthma Bilateral headaches Bipolar 1 disorder Cervicogenic headache Environmental allergies Generalized anxiety disorder Genital herpes simplex Hypoglycemia Lupus Mild hyperemesis gravidarum PTSD (post-traumatic stress disorder) Segmental and somatic dysfunction of cervical region Segmental and somatic dysfunction of lumbar region Segmental and somatic dysfunction of thoracic region Home Medications ibuprofen 600 mg tablet 600 mg PO Q6H PRN PRN Pain Score 1-10/10 #20 tabs 04/24/20 [Rx Last Taken Unknown] azithromycin 250 mg tablet 250 mg PO DAILY #4 tabs 05/03/20 [Rx Last Taken Unknown] prednisone 20 mg tablet 60 mg (3 x 20 mg) PO DAILY #15 tabs 05/03/20 [Rx Last Taken Unknown] Allergy/AdvReac Type Severity Reaction Status Date / Time zolpidem [From Ambien] AdvReac Other Verified 11/02/23 05:46 Family History Other CVA (cerebral vascular accident) Colon cancer Heart disease Hypertension Surgical History History of tonsillectomy and adenoidectomy Left knee injury Previous section Social History Smoking Status: Never smoker alcohol intake: never substance use type: does not use what type of physical activity do you participate in: none ROS ROS ED ROS Narrative Constitutional: No fever, no chills. HEENT: No sore throat. Left-sided neck pain. No loss of vision. No rhinorrhea. Cardiovascular: No chest pain. No palpitations. No pedal edema. Respiratory: No cough, no shortness of breath. Abdominal: No abdominal pain. No nausea. No vomiting. Genitourinary: No dysuria. No hematuria. Musculoskeletal: No myalgias. No arthralgias. Left trapezial pain. Neurologic: No headaches. No dizziness. No lightheadedness. Skin: No rash. No change in color. Psychiatric: No depression. No anxiety. EXAM Physical Exam Narrative Exam Narrative: Afebrile. Vital signs noted. HEENT: Normocephalic. Atraumatic. PERRL, EOMI. Neck soft and supple. No meningismus. Positive muscle spasms left paraspinal musculature. No vertebral point tenderness or bony step-off. Range of motion of neck limited secondary to pain. Cardiovascular: Regular rate and rhythm. No murmurs, rubs, or gallops appreciated. Respiratory: No tachypnea. Lungs clear to auscultation bilaterally. Gastrointestinal: Abdomen soft, nontender, with normoactive bowel sounds. No rebound or guarding. Neurological: Awake. Alert. Nonfocal, nonlateralizing. Skin: No rash. Normal color. No pallor. Musculoskeletal: No pedal edema. Neurovascular intact bilateral upper extremities with palpable radial pulses bilaterally. Mild tenderness to palpation base of left neck with noted spasms and tenderness into the trapezius. Const Vital Signs: 11/02/23 05:41 11/02/23 05:46 Temperature 97.1 F L Temperature Source Temporal Pulse Rate 80 Respiratory Rate 17 Respiratory Effort Normal Respiratory Pattern Normal Blood Pressure 111/74 Blood Pressure Mean 86 Pulse Ox 98 Oxygen Delivery Method Room Air MDM MDM MDM Narrative Medical decision making narrative: I do not feel that imaging is indicated. Her pain is all along the left paraspinal musculature and trapezius. She has not had trauma so I have low suspicion for fracture. In order to treat her torticollis/muscle spasms, intramuscular injections of Toradol and Norflex were given. I do not feel that she requires laboratory work. She states that since she had her baby 8 months ago, that she is more prone to blood clots. I do not feel that this is indicative of a pulmonary embolism or vaso-occlusive crisis. I reviewed her prior visits that she has had problems with her back. She is reassured. Upon repeat examination at approximately 6:45 AM, she is resting comfortably on the cot, lying on her right side, looking at her cellular telephone. She states that she feels mildly improved. Her neck is still sore, but she can move it a little bit better, and has better range of motion. At this point in time, I feel she can be discharged safely home with follow-up to her primary care provider. She will take [id number] medications like Tylenol and ibuprofen, but I will write her prescription for Flexeril. She will follow-up with her primary care provider. Return instructions to the emergency department were reviewed. Disposition is discharged home in stable condition. History & Record Review Discussion w/independent historian: Patient Additional record(s) reviewed:: Prior ED visit (Noncontributory to current chief complaint.) Discharge Plan Triage Chief Complaint: Other, Pain/Inj ED Provider: Tyler Frank Dx/Rx/DC Orders Clinical Impression: Neck muscle spasm, Neck pain Instructions: ED Neck Pain, ED Neck Spasm, No Trauma Prescriptions: No Action ibuprofen 600 MG tablet 600 mg PO Q6H PRN PRN (Reason: Pain Score 1-10/10) Qty: 20 0RF azithromycin 250 MG tablet 250 mg PO DAILY Qty: 4 0RF prednisone 20 MG tablet 60 mg PO DAILY Qty: 15 0RF Rx Instructions: With food Primary Care Provider: Care Physician,No Primary Referrals: Armani Hurtado MD [Non-Staff] - 3-5 Days if not improving
[2023-11-02] MEDS: Ketorolac 30 MG/ML Syringe IM (05:59)
[2023-11-02] MEDS: Orphenadrine 60 MG/2 ML Ampul IM (05:59)
[2023-11-02 07:01] VITALS: BP 110/68; PULSE 76; RESP 18; TEMP 36.4; O2SAT 98
== END 2023-11-02 07:02 | disposition home or self-care (01) ==
PROVIDERS: Emergency Provider Emergency Medicine; Visit Provider Emergency Medicine
DX: M62.838 Other muscle spasm (principal); F31.9 Bipolar disorder, unspecified; M54.2 Cervicalgia
CPT/HCPCS: 96372; 99282

== ENCOUNTER 2024-03-03 01:19 | Emergency (ER) | payer MEDICAID, SELFPAY ==
[2024-03-03 01:19] VITALS: BP 128/88; PULSE 93; RESP 15; TEMP 36.3; O2SAT 97; BMI 43.0
--- NOTE | 2024-03-03 01:36 | RAD_ITS ---
INDICATION: pain STEPPED IN A HOLE C/O PAIN TO MEDIAL LT FOOT AND ANKLE EXAMINATION/TECHNIQUE: X-RAY - LEFT XR Ankle Min 3 Views 3 VIEWS COMPARISON: FINDINGS: BONES: No fracture demonstrated. JOINTS: No dislocation. SOFT TISSUES: Unremarkable. RAD/Ankle min 3 Views IMPRESSION: No evidence of fracture. Electronically Signed: Nicole Brooke MD at 2:24 EDT ,
--- NOTE | 2024-03-03 01:36 | RAD_ITS ---
INDICATION: pain STEPPED IN A HOLE C/O PAIN TO MEDIAL LT FOOT AND ANKLE EXAMINATION/TECHNIQUE: X-RAY - LEFT XR Foot Min 3 Views 3 VIEWS COMPARISON: FINDINGS: BONES: No fracture demonstrated. JOINTS: No dislocation. SOFT TISSUES: Unremarkable. RAD/Foot min 3 Views IMPRESSION: No evidence of fracture. Electronically Signed: Nicole Brooke MD at 2:25 EDT ,
--- NOTE | 2024-03-03 01:49 | EDS_ITS ---
HPI History of Present Illness Chief Complaint: Lower Extremity Injury Informant: patient Narrative Narrative: Patient is a 23-year-old female with past medical history of asthma and anxiety and bipolar disorder. She states she was working for [employer] when roughly 30 minutes to an hour ago she stepped in a rabbit hole and rolled her left ankle. She states she had pain and swelling and difficulty walking since that time and with concern for fracture comes in for evaluation. She denies any other injury [facility] Medical History Generalized anxiety disorder PTSD (post-traumatic stress disorder) Bipolar 1 disorder Mild hyperemesis gravidarum Genital herpes simplex Segmental and somatic dysfunction of cervical region Segmental and somatic dysfunction of lumbar region Segmental and somatic dysfunction of thoracic region Cervicogenic headache Lupus Hypoglycemia Bilateral headaches Anxiety Asthma Environmental allergies Home Medications ?Medication ?Instructions ?Recorded ?Last Taken ?Type ibuprofen 600 mg tablet 600 mg PO Q6H PRN PRN Pain Score 04/24/20 Unknown Rx 1-05/16 #20 tabs azithromycin 250 mg tablet 250 mg PO DAILY #4 tabs 05/03/20 Unknown Rx prednisone 20 mg tablet 60 mg (3 x 20 mg) PO DAILY #15 tabs 05/03/20 Unknown Rx cyclobenzaprine 10 mg tablet 10 mg PO TID PRN Muscle Spasm #20 11/02/23 Unknown Rx TABLETS Allergy/AdvReac Type Severity Reaction Status Date / Time zolpidem (From Ambien) AdvReac Other Verified 03/03/24 01:25 Family History Other CVA (cerebral vascular accident) Colon cancer Heart disease Hypertension Surgical History History of tonsillectomy and adenoidectomy Left knee injury Previous section Social History Smoking Status: Never smoker alcohol intake: never substance use type: does not use what type of physical activity do you participate in: none ROS ROS ED Constitutional Constitutional ED: Denies chills or fever(s) ENT ENT ED: Denies sore throat Cardiovascular Cardiovascular: Denies chest pain Respiratory/Chest Respiratory/Chest: Denies cough or dyspnea Gastrointestinal Gastrointestinal: Denies abdominal pain, diarrhea, nausea or vomiting Genitourinary Genitourinary ED: Denies dysuria Musculoskeletal Musculoskeletal: Reports other Details: Positive left ankle and foot pain Integumentary Denies Abrasions Neurologic Neurologic: Denies headache(s) or paresthesias Psychiatric Psychiatric: Reports anxiety Hematologic/Lymphatic Hematologic/Lymphatic: Denies easy bleeding or easy bruising EXAM Physical Exam Const Vital Signs: 03/03/24 01:19 Temperature 97.4 F L Temperature Source Temporal Pulse Rate 93 Respiratory Rate 15 Blood Pressure 128/88 H Blood Pressure Mean 101 Pulse Ox 97 Oxygen Delivery Method Room Air Positive well nourished, well developed and obese General Appearance ED: well developed; Negative for pallor Nutritional Appearance: obese HEENT HEENT Narrative: Normocephalic atraumatic Eyes PERRL and EOMs intact bilaterally General Eye ED: Negative for scleral icterus Neck supple Resp normal respiratory effort and clear to auscultation bilaterally Cardio regular rate and regular rhythm Extremity Extremity Narrative: Left lower extremity is neurovascularly intact. There is soft tissue swelling along the medial and lateral malleolus consistent with history of ankle injury. There is pain on palpation more along the medial aspect of the joint space of the left ankle. No obvious bony deformity or joint effusion. Achilles tendon is intact. There is mild laxity with stressing of the deltoid and tibial talar ligament. Patient also has mild pain with palpation along the first metatarsal of the left foot Remainder of the exam is normal Neuro oriented x3, CN's II-XII intact bilaterally and no sensory deficits noted Sensorium / Orientation: alert Psych mental status grossly normal Skin no rashes or lesions noted Skin Narrative: Mild soft tissue swelling of the left ankle and foot as documented above General Skin Exam: Negative for jaundice or pallor MDM MDM MDM Narrative Medical decision making narrative: Patient arrived to the ER with stable vitals and reported a mechanical injury to her left ankle and foot. Differential diagnosis is for fracture versus dislocation versus sprain. Secondary to his x-rays were obtained. X-rays revealed no acute bony injury. Her exam however does correlate with a grade 2 ankle sprain. Secondary to this should be placed in a walking boot for stabilization but as there is no fracture or dislocation and she is neurovascularly intact there is no need for further intervention and she is otherwise safe for discharge with walking boot for stabilization. History & Record Review Discussion w/independent historian: Patient Radiography Diagnostic Testing: X-ray of the left foot as interpreted by the emergency medicine physician reveals no acute fracture or dislocation X-ray of the left ankle as interpreted by the emergency medicine physician reveals no acute fracture dislocation or joint effusion Discharge Plan Triage Chief Complaint: Lower Extremity Injury ED Provider: Jacob Goldstein Dx/Rx/DC Orders Clinical Impression: Grade 2 ankle sprain, Bipolar 1 disorder, Anxiety Instructions: ED Ankle Sprain (Adult) Prescriptions: No Action ibuprofen 600 MG tablet 600 mg PO Q6H PRN PRN (Reason: Pain Score 1-10/10) Qty: 20 0RF azithromycin 250 MG tablet 250 mg PO DAILY Qty: 4 0RF prednisone 20 MG tablet 60 mg PO DAILY Qty: 15 0RF Rx Instructions: With food cyclobenzaprine 10 mg tablet 10 mg PO TID PRN (Reason: Muscle Spasm) Qty: 20 0RF Primary Care Provider: Care Physician,No Primary Referrals: Viral Nieves DPM [Med Staff - Active Staff] - Care Physician,No Primary [Primary Care Provider] - Activity Restrictions/Additional Instructions: Your x-rays show no acute fracture or dislocation indicating that you sprained your ankle and this will heal spontaneously as long as you wear your walking boot over the next 1 to 2 weeks. Follow-up with podiatry for further evaluation and return to the ER if you have any further concerns or worsening of symptoms. Print Language: Israeli Disposition Disposition: Home, Self Care
[2024-03-03 02:27] VITALS: BP 126/96; PULSE 84; RESP 16; TEMP 36.6; O2SAT 97
== END 2024-03-03 02:50 | disposition home or self-care (01) ==
PROVIDERS: Emergency Provider Emergency Medicine; Visit Provider Emergency Medicine
DX: S93.402A Sprain of unspecified ligament of left ankle, initial encounter (principal); F31.9 Bipolar disorder, unspecified; F41.9 Anxiety disorder, unspecified; J45.909 Unspecified asthma, uncomplicated; X58.XXXA Exposure to other specified factors, initial encounter
CPT/HCPCS: 73610; 73630; 99283

== ENCOUNTER 2024-06-01 18:18 | Emergency (ER) | payer MEDICAID, SELFPAY ==
[2024-06-01 18:20] VITALS: BP 129/90; PULSE 85; RESP 18; TEMP 36.6; O2SAT 97; BMI 41.8
--- NOTE | 2024-06-01 18:32 | EX.ED.DYSGE1 ---
HPI History of Present Illness Chief Complaint: Chest Other Informant: patient Onset/Context/Timing Onset: Days (2) Context: Gradual Onset Timing: Continuous Quality: Sharp Location: Substernal chest Worsened by: Breathing Relieved by: Nothing Narrative Narrative: Patient presents with chest pain that has been getting worse over the past 2 days. Patient describes it as sharp. Patient states it is over the substernal area and radiates into her back. Patient admits to a cough with yellow and green sputum. Patient denies any shortness of breath however. Patient states her pain is worse with deep breathing. Patient states nothing seems to help with her pain. Patient states her child has been sick recently. Patient denies any fevers or chills. [facility] Medical History Generalized anxiety disorder PTSD (post-traumatic stress disorder) Bipolar 1 disorder Mild hyperemesis gravidarum Genital herpes simplex Segmental and somatic dysfunction of cervical region Segmental and somatic dysfunction of lumbar region Segmental and somatic dysfunction of thoracic region Cervicogenic headache Lupus Hypoglycemia Bilateral headaches Anxiety Asthma Environmental allergies Home Medications ?Medication ?Instructions ?Recorded ?Last Taken ?Type ibuprofen 600 mg tablet 600 mg PO Q6H PRN PRN Pain Score 04/24/20 Unknown Rx 1-05/16 #20 tabs azithromycin 250 mg tablet 250 mg PO DAILY #4 tabs 05/03/20 Unknown Rx prednisone 20 mg tablet 60 mg (3 x 20 mg) PO DAILY #15 tabs 05/03/20 Unknown Rx cyclobenzaprine 10 mg tablet 10 mg PO TID PRN Muscle Spasm #20 11/02/23 Unknown Rx TABLETS Allergy/AdvReac Type Severity Reaction Status Date / Time zolpidem (From Ambien) AdvReac Other Verified 06/01/24 18:20 Family History Other CVA (cerebral vascular accident) Colon cancer Heart disease Hypertension Surgical History Previous section Left knee injury History of tonsillectomy and adenoidectomy Social History Smoking Status: Never smoker alcohol intake: never substance use type: does not use what type of physical activity do you participate in: none ROS ROS ED Constitutional Constitutional ED: Denies chills or fever(s) Eyes Eyes: Denies blurry vision or change in vision ENT ENT ED: Denies rhinorrhea or sore throat Cardiovascular Cardiovascular: Reports chest pain; Denies palpitations Respiratory/Chest Respiratory/Chest: Reports cough and sputum; Denies dyspnea Gastrointestinal Gastrointestinal: Denies nausea or vomiting Genitourinary Genitourinary ED: Denies dysuria or hematuria Musculoskeletal Musculoskeletal: Reports back pain; Denies neck pain Integumentary Denies abscess or rash Neurologic Neurologic: Reports headache(s); Denies weakness Allergic/Immunologic Allergic/Immunologic ED: Denies mouth swelling or urticaria EXAM Physical Exam Const Vital Signs: 06/01/24 18:20 06/01/24 20:36 Temperature 98 F Temperature Source Oral Pulse Rate 85 80 Respiratory Rate 18 22 H Blood Pressure 129/90 H Blood Pressure Mean 103 Pulse Ox 97 Oxygen Delivery Method Room Air Positive well nourished and well developed General Appearance ED: well developed and NAD HEENT Reports moist mucous membranes Neck supple and no JVD Resp normal respiratory effort and clear to auscultation bilaterally Cardio regular rate and regular rhythm GI non-tender and non-distended Palpation: soft Neuro oriented x3, CN's II-XII intact bilaterally and no sensory deficits noted Sensorium / Orientation: alert Motor Exam: strength 5/5 throughout Psych mental status grossly normal MDM MDM MDM Narrative Medical decision making narrative: Differential diagnosis includes pneumonia, bronchitis, viral illness, gastroesophageal reflux disease, musculoskeletal pain, cardiac dysrhythmia, and cardiac ischemia. EKG will be obtained to assess for cardiac dysrhythmia and cardiac ischemia. Chest x-ray will be obtained to assess for pneumonia and pneumothorax. COVID-19, influenza, and RSV PCR will be obtained to assess for viral illness. Lab Data Lab results narrative: COVID-19 PCR was reviewed and was negative. Influenza PCR was reviewed and was negative for influenza A and influenza B. RSV PCR was reviewed and was negative. Radiography Chest X-Ray - ED: 2 View, Read by ED Physician, Read by Radiologist and No Acute Disease Diagnostic Testing: Clinical Impression(s) from Imaging Studies Chest X-Ray 06/01/24 18:58 IMPRESSION: No radiographic evidence of acute cardiopulmonary disease. Electronically Signed: Tasha Tamayo MD at 21:13 EDT , PA and lateral chest x-ray was obtained. There are 2 views. On my independent interpretation, lung greenberg are clear. There is normal cardiac silhouette. Bony thorax is normal. There is no acute process noted. Radiologist also interpreted the x-ray and agrees. EKG Initial EKG: Attestation: I personally reviewed and interpreted this EKG as follows: Interpretation: Sinus Rhythm (79) and No Acute Injury Pattern Comments: EKG was obtained. On my independent interpretation, it showed a normal sinus rhythm with a rate of 79. SC interval, QRS interval, and QTc intervals were all normal. [place] was normal. There are no acute ST or T wave changes. Prior EKG tracings: not available for review Prior: No Prior Treatment and Re-Evaluation :: Patient advised of her findings. Patient was instructed to take Tylenol or ibuprofen as needed for pain. Patient was instructed to follow-up with a primary care physician in 5 to 7 days. Patient understood and was agreeable with the plan. All questions were answered. Discharge Plan Triage Chief Complaint: Chest Other ED Provider: Agusto Domingo Dx/Rx/DC Orders Clinical Impression: Chest pain, Anxiety Instructions: ED Chest Pain, Uncertain Cause Prescriptions: No Action ibuprofen 600 MG tablet 600 mg PO Q6H PRN PRN (Reason: Pain Score 1-10/10) Qty: 20 0RF azithromycin 250 MG tablet 250 mg PO DAILY Qty: 4 0RF prednisone 20 MG tablet 60 mg PO DAILY Qty: 15 0RF Rx Instructions: With food cyclobenzaprine 10 mg tablet 10 mg PO TID PRN (Reason: Muscle Spasm) Qty: 20 0RF Primary Care Provider: Care Physician,No Primary Referrals: Agusto Graves MD [Med Staff - Airport Guide] - 5-7 Days Care Physician,No Primary [Primary Care Provider] - Print Language: Lao Disposition Disposition: Home, Self Care
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
--- NOTE | 2024-06-01 18:58 | EKG12_ITS ---
Test Reason : CHEST OTHER Blood Pressure : / mmHG Vent. Rate : 079 BPM Atrial Rate : 079 BPM P-R Int : 164 ms QRS Dur : 084 ms QT Int : 352 ms P-R-T Axes : 060 036 025 degrees QTc Int : 403 ms Normal sinus rhythm with sinus arrhythmia Normal ECG Confirmed by ELMO BARNES, ANGIE ([id number]), legal editor CHRISTA SALDANA ([id number]) on 06/03/2024 9:35:04 AM Referred By: YASH Confirmed By:ANGIE BORREGO MD
--- NOTE | 2024-06-01 18:58 | RAD_ITS ---
EXAM: XR CHEST, 2 VIEWS CLINICAL INDICATION: Chest pain TECHNIQUE: Frontal and lateral views of the chest. COMPARISON: May 03, 2020 FINDINGS: LUNGS AND PLEURAL SPACES: Unremarkable. No consolidation or edema. No pneumothorax. No effusion. HEART: Unremarkable. Cardiac silhouette not enlarged. MEDIASTINUM: Central airways and mediastinal contour are unremarkable. BONES/JOINTS: Unremarkable. No acute fracture. SOFT TISSUES: Unremarkable. RAD/Chest PA and Lateral IMPRESSION: No radiographic evidence of acute cardiopulmonary disease. Electronically Signed: Tasha Tamayo MD at 21:13 EDT ,
[2024-06-01 20:36] VITALS: PULSE 80; RESP 22
--- NOTE | 2024-06-01 20:45 | ED.RN ---
called xray to inquire about results, called lab to inquire about results.
--- NOTE | 2024-06-01 21:20 | ED.RN ---
Pt states she needs to leave link and asking for findings and d/c paperwork. Pt states her has to leave for work soon and she needs to go to care for her children. updated.
== END 2024-06-01 21:37 | disposition home or self-care (01) ==
PROVIDERS: Emergency Provider Emergency Medicine; Visit Provider Emergency Medicine
DX: R07.9 Chest pain, unspecified (principal); F31.9 Bipolar disorder, unspecified; F41.9 Anxiety disorder, unspecified; J45.909 Unspecified asthma, uncomplicated
CPT/HCPCS: 71046; 87631; 93005; 99283

== ENCOUNTER 2024-12-14 18:20 | Emergency (ER) | payer MEDICAID, SELFPAY ==
[2024-12-14 18:21] VITALS: BP 122/89; PULSE 107; RESP 18; TEMP 36.3; O2SAT 98; BMI 40.8
--- NOTE | 2024-12-14 18:28 | EDS_ITS ---
HPI <ALEKSANDR Che - Last Filed: 12/14/24 19:08> History of Present Illness Chief Complaint: Lower Extremity Injury Narrative Narrative: 24-year-old female was carrying her daughter yesterday and tripped on the steps. She fell down approximately 8 steps landing on her lower back and left hip. She is able to ambulate but has a limp. 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 She is taken Tylenol and ibuprofen several hours ago. She has no pain that radiates down the leg. No weakness or numbness or tingling. There was no head injury or LOC. PFSH <ALEKSANDR Che - Last Filed: 12/14/24 19:08> PFSH Medical History Generalized anxiety disorder PTSD (post-traumatic stress disorder) Bipolar 1 disorder Mild hyperemesis gravidarum Genital herpes simplex Segmental and somatic dysfunction of cervical region Segmental and somatic dysfunction of lumbar region Segmental and somatic dysfunction of thoracic region Cervicogenic headache Lupus Hypoglycemia Bilateral headaches Anxiety Asthma Environmental allergies Allergy/AdvReac Type Severity Reaction Status Date / Time zolpidem (From Ambien) AdvReac Other Verified 12/14/24 18:21 Family History Other CVA (cerebral vascular accident) Colon cancer Heart disease Hypertension Surgical History Previous section Left knee injury History of tonsillectomy and adenoidectomy Social History (Updated 12/14/24 @ 18:38 by Alta Wei) household members: family housing: house Smoking Status: Never smoker alcohol intake: never substance use type: does not use what type of physical activity do you participate in: none ROS <ALEKSANDR Che - Last Filed: 12/14/24 19:08> ROS ED ROS Narrative GI: Negative for abdominal pain. Neuro: Negative for motor/sensory dysfunction. Skin: Negative for abrasions or lacerations. Musc: Positive for left hip pain, trauma. EXAM <ALEKSANDR Che - Last Filed: 12/14/24 19:08> Physical Exam Narrative Exam Narrative: CONST: Patient sitting in no acute distress. EYES: Normal inspection. NECK: Normal inspection. RESP: No respiratory distress, CTAB. CVS: Regular rate and rhythm, no murmur, no gallop. Back: Normal inspection, midline tenderness over the lower lumbar spine without step-offs or crepitus. Tender to palpation over the left iliac crest. No bruising. SKIN: Color normal, no rash, warm, dry, intact. EXTREMITIES: Normal appearance, full range of motion upper and lower extremities. Pain in the left hip with active movement but no reproducible pain with palpation of the hip or lower extremity. 2+ DP pulses. NEURO: Alert and answering questions appropriately. PSYCH: Normal affect. Const Vital Signs: 12/14/24 18:21 12/14/24 19:15 Temperature 97.4 F L 98.4 F Temperature Source Temporal Pulse Rate 107 H 75 Respiratory Rate 18 16 Blood Pressure 122/89 H Blood Pressure Mean 100 Pulse Ox 98 99 <Dr. Frank Shankar MD - Last Filed: 12/14/24 22:20> Physical Exam Const Vital Signs: 12/14/24 18:21 12/14/24 19:15 Temperature 97.4 F L 98.4 F Temperature Source Temporal Pulse Rate 107 H 75 Respiratory Rate 18 16 Blood Pressure 122/89 H Blood Pressure Mean 100 Pulse Ox 98 99 MDM <ALEKSANDR Che - Last Filed: 12/14/24 19:08> [facility] Narrative Medical decision making narrative: 24-year-old female had a mechanical fall downstairs injuring her low back and left hip yesterday and is having increased pain while active today. There is no external signs of trauma. She is tender over the lower lumbar spine and left iliac crest without deformity or crepitus. Both lower extremities are neurovascularly intact. She has no red flag signs concerning for cauda equina syndrome. X-rays of the lumbar spine and left hip are negative. She was treated with IM Toradol and counseled on [id number] analgesia. She was discharged in stable condition. Differential includes low back and hip contusion versus fracture ED attending interpretation of lumbar spine shows no acute fracture. ED attending interpretation of left hip and pelvis shows no acute fracture or dislocation. I have personally performed a face to face assessment of the patient and have reviewed the CL Note. I performed a substantive portion of the visit including all aspects of the following. My roman findings include: History is remarkable for pain due to fall down 8 steps yesterday. She complains of pain in the left buttocks and lower back region. She denied head trauma. No loss conscious. Denies chest pain or shortness of breath. Denies abdominal pain. Denies hematuria. She is not on anticoagulant or antithrombotic. She denies paresthesia, anesthesia medics. She complains of pain with movement Exam is remarkable pain over the left ischial tuberosity. Internal extra rotation of the left lower extremity reveals no pain in the hip. She has no pain the patient over the left knee or ankle. DP PT pulse are palpable. There is pain to palpation over the lower lumbar sacral region as well. Medical Decision Making in light of mechanism obtain x-ray to evaluate for fracture versus contusion. Other additions or changes: [None] Radiography Diagnostic Testing: Clinical Impression(s) from Imaging Studies Hip/Pelvis X-Ray 12/14/24 18:40 IMPRESSION: No acute findings. Reading Location: [facility] Lumbar Spine X-Ray 12/14/24 18:40 IMPRESSION: NEGATIVE LUMBAR SPINE. Reading Location: [facility] <Dr. Frank Shankar MD - Last Filed: 12/14/24 22:20> [facility] Narrative Medical decision making narrative: I have personally performed a face to face assessment of the patient and have reviewed the CL Note. I performed a substantive portion of the visit including all aspects of the following. My roman findings include: History is remarkable for pain due to fall down 8 steps yesterday. She complains of pain in the left buttocks and lower back region. She denied head trauma. No loss conscious. Denies chest pain or shortness of breath. Denies abdominal pain. Denies hematuria. She is not on anticoagulant or antit hrombotic. She denies paresthesia, anesthesia medics. She complains of pain with movement Exam is remarkable pain over the left ischial tuberosity. Internal extra rotation of the left lower extremity reveals no pain in the hip. She has no pain the patient over the left knee or ankle. DP PT pulse are palpable. There is pain to palpation over the lower lumbar sacral region as well. Medical Decision Making in light of mechanism obtain x-ray to evaluate for fracture versus contusion. Other additions or changes: [None] Radiography Chest X-Ray - ED: 2 View (2 view x-ray of the LS-spine reveals no fracture, subluxation dislocation. There is no asymmetry of the disc spaces. There is eventually reviewed and interpreted by me at 1902) and Read by ED Physician (Three-view x-ray of the hip was obtained. There is no fracture, subluxation dislocation noted. There is no abnormality of the pelvis and specifically over the left ischial tuberosity. This was independent reviewed interpreted by me at 1902 as well.) Diagnostic Testing: Clinical Impression(s) from Imaging Studies Hip/Pelvis X-Ray 12/14/24 18:40 IMPRESSION: No acute findings. Reading [facility] Lumbar Spine X-Ray 12/14/24 18:40 IMPRESSION: NEGATIVE LUMBAR SPINE. Reading [facility] Discharge Plan Triage Chief Complaint: Lower Extremity Injury ED Midlevel Provider: Cristel Mae ED Provider: Frank Shankar Dx/Rx/DC Orders Clinical Impression: Contusion of hip, left, Contusion of lower back, Fall down stairs, Tachycardia, unspecified Instructions: Bruises (Contusions) Stand Alone Forms: ED Work / School Excuse Primary Care Provider: Care Physician,No Primary Referrals: Care Physician,No Primary [Primary Care Provider] - Activity Restrictions/Additional Instructions: X-rays show no evidence of broken bones. You may be sore for the next few days to weeks. Ice and alternate Tylenol and ibuprofen every 3 hours as needed. Print Language: Ecuadorean Disposition Disposition: Home, Self Care Discharge Date/Time: 12/14/24 19:16
[2024-12-14] MEDS: Ketorolac 15 MG/ML Vial IM (18:33)
--- NOTE | 2024-12-14 18:40 | RAD_ITS ---
PROCEDURE: LUMBAR SPINE 2 OR 3 VIEWS 12/14/2024 REASON FOR EXAM: PAIN, FALL TECHNIQUE: 2 view(s) of the lumbar spine COMPARISON: None FINDINGS: Vertebrae: Vertebral body heights are maintained. No acute fracture or traumatic subluxation. Pedicles are intact. Osseous architecture is maintained. Discs: Disc spaces are maintained. Alignment: Lumbar lordosis is maintained. Other: RAD/Lumbar Spine 2 or 3 Views IMPRESSION: NEGATIVE LUMBAR SPINE. Reading Location: [facility]
--- NOTE | 2024-12-14 18:40 | RAD_ITS ---
PROCEDURE: HIP, UNI W/ PELVIS 2-3 VIEWS 12/14/2024 REASON FOR EXAM: PAIN TECHNIQUE: Three views of the right none hip COMPARISON: None FINDINGS: No acute fracture or dislocation. Joint spaces are maintained. No focal soft tissue abnormality RAD/HIP, UNI W/ Pelvis 2-3 Views IMPRESSION: No acute findings. Reading Location: [facility]
[2024-12-14 19:15] VITALS: PULSE 75; RESP 16; TEMP 36.9; O2SAT 99
== END 2024-12-14 19:16 | disposition home or self-care (01) ==
PROVIDERS: Emergency Provider Emergency Medicine; Visit Provider Emergency Medicine
DX: S70.02XA Contusion of left hip, initial encounter (principal); S30.0XXA Contusion of lower back and pelvis, initial encounter; W10.9XXA Fall (on) (from) unspecified stairs and steps, initial encounter; R00.0 Tachycardia, unspecified
CPT/HCPCS: 72100; 73502; 96372; 99283

== ENCOUNTER 2025-02-01 18:55 | Emergency (ER) | payer MEDICAID, SELFPAY ==
[2025-02-01 18:55] VITALS: BP 137/90; PULSE 90; RESP 16; TEMP 36.8; O2SAT 99; BMI 41.1
--- NOTE | 2025-02-01 19:08 | RAD_ITS ---
PROCEDURE: SHOULDER MIN 2 VIEWS 02/01/2025 REASON FOR EXAM: PAIN TECHNIQUE: SHOULDER MIN 2 VIEWS, left COMPARISON: Chest radiograph 06/01/2024. FINDINGS: Bones: No acute fracture. No aggressive osseous lesions. Joints: Normal alignment. Joint spaces preserved. No arthropathic features. Soft tissues: Soft tissues are unremarkable. RAD/Shoulder min 2 Views IMPRESSION: NO ACUTE FRACTURE OR DISLOCATION. Reading Location: [id number]
[2025-02-01] MEDS: Orphenadrine 60 MG/2 ML Ampul 30 MG IM (19:14)
[2025-02-01] MEDS: Ketorolac 30 MG/ML Syringe IM (19:14)
--- NOTE | 2025-02-01 19:24 | EDS_ITS ---
HPI History of Present Illness Chief Complaint: Upper Extremity Injury Narrative Narrative: Patient is a 24-year-old female who presents to the emergency department chief complaint of left shoulder pain. Patient states that she tore something in her shoulder in the past and notes that she has had shoulder pain for a significant mount of time however notes that today she was lifting a air conditioning unit and feels like she exacerbated her pain. Patient denies any falls or other in juries. Patient states that she has pain radiating down into her left arm into her fingers and feels some tingling associated with this. PFSH PFSH Medical History Generalized anxiety disorder PTSD (post-traumatic stress disorder) Bipolar 1 disorder Mild hyperemesis gravidarum Genital herpes simplex Segmental and somatic dysfunction of cervical region Segmental and somatic dysfunction of lumbar region Segmental and somatic dysfunction of thoracic region Cervicogenic headache Lupus Hypoglycemia Bilateral headaches Anxiety Asthma Environmental allergies Home Medications ?Medication ?Instructions ?Recorded ?Last Taken ?Type cyclobenzaprine 10 mg tablet 10 mg PO TID PRN muscle s pasm #20 02/01/25 Unknown Rx tabs Allergy/AdvReac Type Severity Reaction Status Date / Time zolpidem (From Ambien) AdvReac Other Verified 02/01/25 18:57 Family History Other CVA (cerebral vascular accident) Colon cancer Heart disease Hypertension Surgical History Previous section Left knee injury History of tonsillectomy and adenoidectomy Social History household members: family housing: house Smoking Status: Never smoker alcohol intake: never substance use type: does not use what type of physical activity do you participate in: none ROS ROS ED ROS Narrative Constitutional: Denies fevers, chills, headaches, lightheadedness, dizziness Neurological: Complains of tingling sensation down her left arm into her hand as noted above in triage note has noted that she has numbness Musculoskeletal: Patient planes left shoulder pain as noted above Skin: Denies any rashes or lesions EXAM Physical Exam Narrative Exam Narrative: General: Patient lying in bed resting comfortably did not appear to be acute distress Head: Atraumatic, normocephalic Eyes: PERRL bilaterally, EOMI bilaterally, no conjunctival injection noted Neck: Soft, supple, trachea midline Cardiovascular: Regular rate and rhythm Musculoskeletal: Patient has some pain with attempted range of motion of her shoulder has full range of motion of all of her joints however left. All other bony prominence palpated joints take the full range of motion no pain elicited. Extremities: Radial pulses +2/4 the bilateral extremities, +5/5 strength noted in the bilateral upper and lower extremities, patient is able giving the okay sign thumbs up oppose her thumb to her pinky is bilaterally finding difficulty she is able to abduct adduct her fingers without any difficulty bilaterally Neurological: Patient following commands knew that she was at [facility] years 2024. Sensation grossly intact in the axillary nerves bilaterally, radial nerve, ulnar nerve and median nerves bilaterally Skin: Warm, dry, intact no rashes or lesions noted Const Vital Signs: 02/01/25 18:55 Temperature 98.3 F Temperature Source Oral Pulse Rate 90 Respiratory Rate 16 Blood Pressure 137/90 H Blood Pressure Mean 105 Pulse Ox 99 MDM MDM MDM Narrative Medical decision making narrative: Patient is a 24-year-old female who presents to the emergency department chief complaint of left shoulder pain. On the differential diagnose includes but not limited to torn rotator cuff, herniated disc, musculoskeletal strain, dislocation. Once workup is obtained and reviewed she will be reevaluated. Patient be given IM Toradol and Norflex. Patient's x-ray of the shoulder reviewed by myself by radiology which showed no acute fracture or dislocation. On reevaluation the patient she is feeling significantly improved and would like to go home at this point time. She was advised to rotate Tylenol and ibuprofen [id number]. She was advised to use the muscle laxer as prescribed. She is advised to follow-up with your doctor in the outpatient setting and return with worsening symptoms or any concerns. She is agreeable this plan all question concerns answered she was discharged home in stable condition Discharge Plan Triage Chief Complaint: Upper Extremity Injury ED Provider: Buddy Garcia Dx/Rx/DC Orders Clinical Impression: Left shoulder pain Prescriptions: New cyclobenzaprine 10 mg tablet 10 mg PO TID PRN (Reason: muscle spasm) Qty: 20 0RF Primary Care Provider: Care Physician,No Primary Referrals: Care Physician,No Primary [Primary Care Provider] - Jeremy Milligan MD [Med Staff - Active Staff] - Mala Sheth Grzegorz, CABLE WIRER-[facility] [[facility]] - Activity Restrictions/Additional Instructions: Rotate Tylenol and ibuprofen [id number] for pain control. When you do this you take some every 3 hours max dose Tylenol 24 hours 4000 mg max dose of ibuprofen in 24 hours 3200 mg. Use muscle relaxer as prescribed do not operate anything under the influence of this medication. Follow-up with the primary care doctor and the orthopedic surgeon that you referred to. Your x-ray did not show any acute findings. Print Language: Moldovan Disposition Disposition: Home, Self Care
--- OUTSIDE RECORDS SUMMARY | 2025-02-01 19:27 | XMS RPT_ITS | CCD ---
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 ???Medication ???Instructions ???Recorded ???Last Taken ???Type ibuprofen 600 mg tablet 600 mg PO Q6H PRN PRN Pain Score 04/24/20 Unknown Rx 1-05/16 #20 tabs azithromycin 250 mg tablet 250 mg PO DAILY #4 tabs 05/03/20 Unknown Rx prednisone 20 mg tablet 60 mg (3 x 20 mg) PO DAILY #15 tabs 05/03/20 Unknown Rx cyclobenzaprine 10 mg tablet 10 mg PO TID PRN Muscle Spasm #20 11/02/23 Unknown Rx TABLETS Allergy/AdvReac Type Severity Reaction Status Date / Time zolpidem (From Ambien) AdvReac Other Verified 06/01/24 18:20 Family History Other CVA (cerebral vascular accident) Colon cancer Heart disease Hypertension Surgical History Previous section Left knee injury History of tonsillectomy and adenoidectomy Social History Smoking Status: Never smoker alcohol intake: never substance use type: does not use what type of physical activity do you participate in: none ROS ROS ED Constitutional Constitutional ED: Denies chills or fever(s) Eyes Eyes: Denies blurry vision or change in vision ENT ENT ED: Denies rhinorrhea or sore throat Cardiovascular Cardiovascular: Reports chest pain; Denies palpitations Respiratory/Chest Respiratory/Chest: Reports cough and sputum; Denies dyspnea Gastrointestinal Gastrointestinal: Denies nausea or vomiting Genitourinary Genitourinary ED: Denies dysuria or hematuria Musculoskeletal Musculoskeletal: Reports back pain; Denies neck pain Integumentary Denies abscess or rash Neurologic Neurologic: Reports headache(s); Denies weakness Allergic/Immunologic Allergic/Immunologic ED: Denies mouth swelling or urticaria EXAM Physical Exam Const Vital Signs: 06/01/24 18:20 06/01/24 20:36 Temperature 98 F Temperature Source Oral Pulse Rate 85 80 Respiratory Rate 18 22 H Blood Pressure 129/90 H Blood Pressure Mean 103 Pulse Ox 97 Oxygen Delivery Method Room Air Positive well nourished and well developed General Appearance ED: well developed and NAD HEENT Reports moist mucous membranes Neck supple and no JVD Resp normal respiratory effort and clear to auscultation bilaterally Cardio regular rate and regular rhythm GI non-tender and non-distended Palpation: soft Neuro oriented x3, CN's II-XII intact bilaterally and no sensory deficits noted Sensorium / Orientation: alert Motor Exam: strength 5/5 throughout Psych mental status grossly normal MDM MDM MDM Narrative Medical decision making narrative: Differential diagnosis includes pneumonia, bronchitis, viral illness, gastroesophageal reflux disease, musculoskeletal pain, cardiac dysrhythmia, and cardiac ischemia. EKG will be obtained to assess for cardiac dysrhythmia and cardiac ischemia. Chest x-ray will be obtained to assess for pneumonia and pneumothorax. COVID-19, influenza, and RSV PCR will be obtained to assess for viral illness. Lab Data Lab results narrative: COVID-19 PCR was reviewed and was negative. Influenza PCR was reviewed and was negative for influenza A and influe (more content not included)... Normal [facility] M100.678on 06-01-2024 M100.678 Pending SARS-CoV-2 (COVID 19) Negative INFLUENZA A Negative INFLUENZA B Negative RSV PCR Negative Normal [facility] Comment on above: Performed By: #### M 100.678 #### [facility] [address] [place], [address] Office Visit Reporton 2023 Office Visit Report [facility] [address] [place] [address] OFFICE VISIT Date of Service: 05/15/24 MR#: [id number] Acct: [id number] Patient: TRIP MONTANEZ Rep #: [id number] : 2000 Provider: ALEKSANDR Vitale Age/Sex: 24/F Location[place] [facility] Status: Signed Intake Vital Signs 03/03/24 01:19 Height 5 ft 6 in 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 Chief Complaint: Preemployment physical Allergies zolpidem (From Ambien) Adverse Reaction (Verified 03/03/24 01:25) Other Office Procedures [facility] Billing Sheet Testing Breath Alcohol in [facility]: Yes Pre-Employment Drug Screen: Yes Assessment and Plan Plan Details Goals Barriers: Goals Decrease RING's Decrease spasm and pain 05/31/24 0750 Date Shahid Bazan Signature: Date (if applicable) CC: Normal [facility] Urgent Care Visit Reporton 1 Urgent Care Visit Report [facility] [address], [address] [place] [address] OFFICE VISIT Date of Service: 05/15/24 MR#: [id number] Acct: [id number] Name: TRIP MONTANEZ Rep #: [id number] : 2000 Provider: ALEKSANDR Vitale Age/Sex: 24/F Location: [facility] Status: Signed Intake Vital Signs 03/03/24 01:19 Height 5 ft 6 in Weight: 266 lb 12.149 oz BMI 43.0 BP 128/88 H Respiration 15 Pulse 93 Temp 97.4 F L Temp Source Temporal Pulse Oximetry (%) 97 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 Chief Complaint: Preemployment physical Allergies zolpidem (From Ambien) Adverse Reaction (Verified 03/03/24 01:25) Other [facility] Medical History Generalized anxiety disorder PTSD (post-traumatic stress disorder) Bipolar 1 disorder Mild hyperemesis gravidarum Genital herpes simplex Segmental and somatic dysfunction of cervical region Segmental and somatic dysfunction of lumbar region Segmental and somatic dysfunction of thoracic region Cervicogenic headache Lupus Hypoglycemia Bilateral headaches Anxiety Asthma Environmental allergies Surgical History History of tonsillectomy and adenoidectomy Left knee injury Previous section Family History Other CVA (cerebral vascular accident) Colon cancer Heart disease Hypertension Social History Smoking Status: Never smoker alcohol intake: never substance use type: does not use what type of physical activity do you participate in: none HPI HPI Chief Complaint: Preemployment physical Details: TRIP MONTANEZ, is a 24 F who presents to the office today for preemployment physical. Please see corresponding scanned documents with today's date. Office Procedures Physical Exam Coding PE Coding Pre-employment PE: Yes Coding Level of Care Code No Charge Diagnoses Pre-employment examination Z02.1 Assessment and Plan Assessment and Plan (1) Pre-employment examination: Status: Acute Plan Details Goals Barriers: Goals Decrease RING's Decrease spasm and pain 05/15/241748 Date Shahid Bazan Signature: Date (if applicable) CC: Normal [facility] CNOVon 04-17-2024 [facility] Office Visit ([facility] ) TRIP MONTANEZ ([id number]) [birth year] F Date Time Provider Department 04/17/24 3:15 PM BENJAMIN LEONARDO [facility] During your visit today, we recorded the following information about you: Temperature Pulse Respiration Blood pressure 99 degrees 122/minute 18/minute 122/82 Weight 118.5 kg Benjamin Leonardo APRN.FUNERAL DIRECTOR/EMBALMER/OWNER 04/18/2024 12:03 PM Signed Subjective HPI HPI Trip Montanez is a [...] ADENOIDECTOMY HX ALLERGIES Ambien [Zolpidem Tartrate] MEDICATIONS Brompheniramine-Pseudo eph-DM (BROMFED DM) 2-30-10 mg/5 mL syrup Take 5 mL by mouth four times a day as needed. (Patient not taking: Reported on 04/17/2024) fluticasone (FLONASE) 50 mcg/actuation nasal spray Use 2 Sprays in each nostril once daily. Rinse mouth after use. (Patient not taking: Reported on 04/17/2024) lactic zwch-ffxmta-qvubbdkpt (PHEXXI) 1.8-1-0.4 % gel Insert 1 prefilled [...] therapy (Patient not taking: Reported on 05/22/2020) Pteatkny-Qn-Gjd-Fe-FA ( VITAMIN) tab Take 1 tablet by [...] left perea (more content not included)... Normal [facility] Ankle min 3 Viewson 03-03-20 Ankle min 3 Views [facility] Services [address] [place] [address] Ankle min 3 Views MR#: [id number] Acct: [id number] Name: TRIP MONTANEZ Rep #: [id number] : 2000 F 23 From: Nicole Villegas PCP: Care Physician,No Primary Status: REG ER Study: Ankle min 3 Views Date of Exam: 03/03/24 Exam# [id number] Ordering Dr: Jacob Goldstein DO [id number] INDICATION: pain STEPPED IN A HOLE C/O PAIN TO MEDIAL LT FOOT AND ANKLE EXAMINATION/TECHNIQUE: X-RAY - LEFT XR Ankle Min 3 Views 3 VIEWS COMPARISON: FINDINGS: BONES: No fracture demonstrated. JOINTS: No dislocation. SOFT TISSUES: Unremarkable. RAD/Ankle min 3 Views IMPRESSION: No evidence of fracture. Electronically Signed: Nicole Brooke MD at 2:24 EDT , CC: Jacob Goldstein DO; No Primary Care Physician Audio Visual Engineer: Signed Normal [facility] Emergency Department Summary on 03-03-2024 Emergency Department Summary [facility] Medical Records Department [address] [place] [address] Emergency Department Summary 03/03/24 MR#: [id number] Acct: [id number] Name: TRIP MONTANEZ Rep #: [id number] : 2000 23 From: Jacob Goldstein DO PCP: Care Physician,No Primary Status:REG ER Location: ED HPI History of Present Illness Chief Complaint: Lower Extremity Injury Informant: patient Narrative Narrative: Patient is a 23-year-old female with past medical history of asthma and anxiety and bipolar disorder. She states she was working for [employer] when roughly 30 minutes to an hour ago she stepped in a rabbit hole and rolled her left ankle. She states she had pain and swelling and difficulty walking since that time and with concern for fracture comes in for evaluation. She denies any other injury [facility] Medical History Generalized anxiety disorder PTSD (post-traumatic stress disorder) Bipolar 1 disorder Mild hyperemesis gravidarum Genital herpes simplex Segmental and somatic dysfunction of cervical region Segmental and somatic dysfunction of lumbar region Segmental and somatic dysfunction of thoracic region Cervicogenic headache Lupus Hypoglycemia Bilateral headaches Anxiety Asthma Environmental allergies Home Medications ???Medication ???Instructions ???Recorded ???Last Taken ???Type ibuprofen 600 mg tablet 600 mg PO Q6H PRN PRN Pain Score 04/24/20 Unknown Rx 1-05/16 #20 tabs azithromycin 250 mg tablet 250 mg PO DAILY #4 tabs 05/03/20 Unknown Rx prednisone 20 mg tablet 60 mg (3 x 20 mg) PO DAILY #15 tabs 05/03/20 Unknown Rx cyclobenzaprine 10 mg tablet 10 mg PO TID PRN Muscle Spasm #20 11/02/23 Unknown Rx TABLETS Allergy/AdvReac Type Severity Reaction Status Date / Time zolpidem (From Ambien) AdvReac Other Verified 03/03/24 01:25 Family History Other CVA (cerebral vascular accident) Colon cancer Heart disease Hypertension Surgical History History of tonsillectomy and adenoidectomy Left knee injury Previous section Social History Smoking Status: Never smoker alcohol intake: never substance use type: does not use what type of physical activity do you participate in: none ROS ROS ED Constitutional Constitutional ED: Denies chills or fever(s) ENT ENT ED: Denies sore throat Cardiovascular Cardiovascular: Denies chest pain Respiratory/Chest Respiratory/Chest: Denies cough or dyspnea Gastrointestinal Gastrointestinal: Denies abdominal pain, diarrhea, nausea or vomiting Genitourinary Genitourinary ED: Denies dysuria Musculoskeletal Musculoskeletal: Reports other Details: Positive left ankle and foot pain Integumentary Denies Abrasions Neurologic Neurologic: Denies headache(s) or paresthesias Psychiatric Psychiatric: Reports anxiety Hematologic/Lymphatic Hematologic/Lymphatic: Denies easy bleeding or easy bruising EXAM Physical Exam Const Vital Signs: 03/03/24 01:19 Temperature 97.4 F L Temperature Source Temporal Pulse Rate 93 Respiratory Rate 15 Blood Pressure 128/88 H Blood Pressure Mean 101 Pulse Ox 97 Oxygen Delivery Method Room Air Positive well nourished, well developed and obese General Appearance ED: well developed; Negative for pallor Nutritional Appearance: obese HEENT HEENT Narrative: Normocephalic atraumatic Eyes PERRL and EOMs intact bilaterally General Eye ED: Negative for scleral icterus Neck supple Resp normal respiratory effort and clear to auscultation bilaterally Cardio regular rate and regular rhythm Extremity Extremity Narrative: Left lower extremity is neurovascularly intact. There is soft tissue swelling along the medial and lateral malleolus consistent with history of ankle injury. There is pain on palpation more along the medial aspect of the joint space of the left ankle. No obvious bony deformity or joint effusion. Achilles tendon is intact. There is mild laxity with stressing of the deltoid and tibial talar ligament. Patient also has mild pain with palpation along the first metatarsal of the left foot Remainder of the exam is normal Neuro oriented x3, CN's II-XII intact bilaterally and no sensory deficits noted Sensorium / Orientation: alert Psych mental status grossly normal Skin no rashes or lesions noted Skin Narrative: Mild soft tissue swelling of the left ankle and foot as documented above General Skin Exam: Negative for jaundice or pallor MDM MDM MDM Narrative Medical decision making narrative: Patient arrived to the ER with stable vitals and reported a mechanical i (more content not included)... Normal [facility] Foot min 3 Viewson Foot min 3 Views [facility] Services [address] [place], [place] [address] Foot min 3 Views MR#: [id number] Acct: [id number] Name: TRIP MONTANEZ Rep #: [id number] : 2000 F 23 From: Nicole Villegas PCP: Care Physician,No Primary Status: REG ER Study: Foot min 3 Views Date of Exam: 03/03/24 Exam# [id number] Ordering Dr: Jacob Goldstein DO [id number] INDICATION: pain STEPPED IN A HOLE C/O PAIN TO MEDIAL LT FOOT AND ANKLE EXAMINATION/TECHNIQUE: X-RAY - LEFT XR Foot Min 3 Views 3 VIEWS COMPARISON: FINDINGS: BONES: No fracture demonstrated. JOINTS: No dislocation. SOFT TISSUES: Unremarkable. RAD/Foot min 3 Views IMPRESSION: No evidence of fracture. Electronically Signed: Nicole Brooke MD at 2:25 EDT , CC: Jacob Goldstein DO; No Primary Care Physician Audio Visual Engineer: Signed Normal [facility] CNOVon 12-16-2023 CNOV Office Visit ([facility] ) TRIP MONTANEZ ([id number]) [birth year] F Date Time Provider Department 12/16/23 10:45 AM NIMCO EDWARDS [facility] During your visit today, we recorded the following information about you: Temperature Pulse Respiration Blood pressure 97 degrees 92/minute 22/minute 131/86 Weight Last Period 116 kg 12/16/23 Nimco Edwards APRN.[facility] 12/16/2023 11:45 AM Signed ASSESSMENT/PLAN: 1. Other [...] Supportive care with fluids and rest - BROMPHENIRAMINE-PSEUDO EPHEDRINE-DM 2 MG-30 MG-10 MG/5 ML ORAL SYRUP [...] Discussed expected course of illness Nimco Edwards APRN.FUNERAL DIRECTOR/EMBALMER/OWNER OTITIS MEDIA GENERAL INFORMATION: Otitis media is [...] even if the symptoms go away. 2. Hrab-ryl-bvsnxzg pain medication may be taken or other [...] fluids help open respiratory and sinus passages Arvin Nasal [place] may offer relief of nasal and head [...] getting worse rather than better Nimco Edwards APRN.[facility] 12/16/2023 11:48 AM Signed Subjective HPI Trip [...] of S (more content not included)... Normal [facility] CNOVon 10-27-2023 CNOV Office Visit (UCWSTR ) TRIP MONTANEZ ([id number]) [birth year] F Date Time Provider Department 10/27/23 8:15 AM BRENDEN MONTANO [facility] During your visit today, we recorded the following information about you: Temperature Pulse Respiration Blood pressure 98.5 degrees 91/minute 18/minute 124/88 Weight 115.3 kg Brenden Montano APRN.CNP 10/27/2023 8:34 AM Signed Subjective HPI Nontoxic-appearing [...] HX ALLERGIES Ambien [Zolpidem Tartrate] MEDICATIONS lactic qqrf-qqsknf-sbydmrkdm (PHEXXI) 1.8-1-0.4 % gel Insert 1 prefilled [...] therapy (Patient not taking: Reported on 05/22/2020) Gnkvumzp-Lh-Kye-Fe-FA ( VITAMIN) tab Take 1 tablet by [...] She is (more content not included)... Normal [facility] STREP A MOLECULAR (POC)on Procedural Control Valid [facility] Strep A (POCT) Positive Abnormal Negative [facility] CNOVon 09-26-2023 CNOV Office Visit (UCWSTR ) TRIP MONTANEZ ([id number]) 1 F Date Time Provider Department 09/26/23 4:00 PM NICA GERARDOWSTR During your visit today, we recorded the following information about you: Temperature Pulse Respiration Blood pressure 98.2 degrees 112/minute 16/minute 128/84 Weight 114.8 kg Nica Gerardo APRN.FUNERAL DIRECTOR/EMBALMER/OWNER 09/26/2023 4:14 PM Signed Subjective The history is provided by the patient. No american sign language teacher was used. HPI Trip Montanez is a [...] have confirmed and edited as necessary, the [facility] Review of Systems Constitutional: Positive [...] detail warranting prompt ER evaluation. Nica Gerardo APRN.FUNERAL DIRECTOR/EMBALMER/OWNER Allergies As of Date: 09/26/2023 Noted Allergy Reaction AMBIEN (ZOLPIDEM TARTRATE) 07/13/2018 1 - Mental Status Change Comments: hallucinations Date Reviewed: 09/26/2023 Reviewed by: Manuela Morse - Fully Assessed Reason for Visit: Fatigue [46] Cmt: fever x 2-3 days Primary Visit Diagnosis:Fatigue, unspecified type [R53.83] Other Visit Diagnosis:Exposure to virus [Z20.828] Prescriptions as of 09/26/2023 - lactic ptdp-dusgzk-sfjgdmxsf (PHEXXI) 1.8-1-0.4 % gel Insert 1 prefilled [...] two wee (more content not included)... Normal [facility] UA MICROSCOPICon 07-05-2020 BACTERIA 1+ /HPF Abnormal [facility] Comment on above: Performed By: #### U AMIC #### [place] [address] MUCUS 2+ /LPF Normal [facility] Comment on above: Performed By: #### U AMIC #### [place] [id number] RBC (Bld) [#/Vol] <1 Normal 0-5 [facility] Comment on above: Performed By: #### U AMIC #### [address] [address] SQUAMOUS EPITH. CELLS 8 /HPF Normal [facility] Comment on above: Performed By: #### U AMIC #### [address] [address] WBC 4 /HPF Normal 0-5 [facility] Comment on above: Performed By: #### U AMIC #### [address] [address] WBC CLUMPS RARE Normal [facility] Comment on above: Performed By: #### U AMIC #### [address] [address] URINALYSIS WITH CULTURE IF I NDICATEDon 07-05-2020 Appearance (U) HAZY Normal CLEAR [facility] Comment on above: Performed By: #### U ARFX #### [facility] [address] [place] [address] Bilirubin (U) [Mass/Vol] Negative Normal NEGATIVE [facility] Comment on above: Performed By: #### U ARFX #### [address] [address] BLOOD Negative Normal NEGATIVE [facility] Comment on above: Performed By: #### U ARFX #### [address] [address] Color (U) YELLOW Normal STRAW,YELLOW [facility] Comment on above: Performed By: #### U ARFX #### [address] [address] Glucose [Mass/Vol] Negative Normal NEGATIVE [facility] Comment on above: Performed By: #### U ARFX #### [address] [address] Ketones Ql (U) Negative Normal NEGATIVE [facility] Comment on above: Performed By: #### U ARFX #### [address] [address] Leukocyte esterase Test strip Ql (U) TRACE Abnormal NEGATIVE [facility] Comment on above: Performed By: #### U ARFX #### [address] [address] Nitrite Ql (U) Negative Normal NEGATIVE [facility] Comment on above: Performed By: #### U ARFX #### [address] [address] pH (Bld) 6.0 Normal 5.0 - 8.0 [facility] Comment on above: Performed By: #### U ARFX #### [address] [address] Protein (U) [Mass/Vol] Negative Normal NEGATIVE [facility] Comment on above: Performed By: #### U ARFX #### [address] [address] Specific gravity (U) [Rel density] 1.021 Normal 1.005 - 1.035 [facility] Comment on above: Performed By: #### U ARFX #### [facility] [address] [place] [address] Urobilinogen Qn (U) <2.0 Normal 0.0 - 1.9 [facility] Comment on above: Performed By: #### U ARFX #### [facility] [address] [place] [address] URINE CULTURE,BACTERIALon URINE CULTURE,BACTERIAL PATIENT: TRIP MONTANEZ LOCATION: [facility]#: [id number] : [birth year] AGE: SEX: F ORDERED BY: DEBRA GEORGE SOURCE: URINE COLLECTED: 07/05/20 11:43 ANTIBIOTICS AT JOYCELYN.: RECEIVED : 07/05/20 21:04 SITE: R E S U L T S URINE CULTURE,BACTERIAL FINAL 07/06/20 14:05 MIXED URETHRAL JON. Normal [facility] Comment on above: Performed By: #### U RINC #### [facility] [address] [place] [address] Vital Signs Date Time Vital Sign Value Performing Clinician Faci lity 08-15-2024 09:10-0500 Body temperature 97.9 [degF] Benjamin Leonardo APRN.CNP Work Phone: [facility] 08-15-2024 09:10-0500 Body weight 115.8 kg Benjamin Leonardo APRN.CNP Work Phone: [facility] 08-15-2024 09:10-0500 Diastolic blood pressure 88 mm[Hg] Benjamin Leonardo APRN.FUNERAL DIRECTOR/EMBALMER/OWNER Work Phone: [facility] 08-15-2024 09:10-0500 Heart rate 80 /min Benjamin Leonardo APRN.FUNERAL DIRECTOR/EMBALMER/OWNER Work Phone: [facility] 08-15-2024 09:10-0500 Respiratory rate 19 /min Benjamin Leonardo APRN.FUNERAL DIRECTOR/EMBALMER/OWNER Work Phone: [facility] 08-15-2024 09:10-0500 SaO2% (BldA) [Mass fraction] 99 % Benjamin Leonardo APRN.FUNERAL DIRECTOR/EMBALMER/OWNER Work Phone: [facility] 08-15-2024 09:10-0500 Systolic blood pressure 120 mm[Hg] Benjamin Leonardo MEDICAID BUSINESS ANALYST.FUNERAL DIRECTOR/EMBALMER/OWNER Work Phone: [facility] 06-21-2024 13:50-0500 Body temperature 97.9 [degF] Mala Hodgson MEDICAID BUSINESS ANALYST.FUNERAL DIRECTOR/EMBALMER/OWNER Work Phone: [facility] 06-21-2024 13:50-0500 Body weight 118.3 kg Mala Hodgson MEDICAID BUSINESS ANALYST.FUNERAL DIRECTOR/EMBALMER/OWNER Work Phone: [facility] 06-21-2024 13:50-0500 Diastolic blood pressure 87 mm[Hg] Mala Hodgson MEDICAID BUSINESS ANALYST.FUNERAL DIRECTOR/EMBALMER/OWNER Work Phone: [facility] 06-21-2024 13:50-0500 Heart rate 71 /min Mala Hodgson MEDICAID BUSINESS ANALYST.FUNERAL DIRECTOR/EMBALMER/OWNER Work Phone: [facility] 06-21-2024 13:50-0500 Respiratory rate 18 /min Mala Hodgson MEDICAID BUSINESS ANALYST.FUNERAL DIRECTOR/EMBALMER/OWNER Work Phone: [facility] 06-21-2024 13:50-0500 SaO2% (BldA) [Mass fraction] 99 % Mala Hodgson MEDICAID BUSINESS ANALYST.FUNERAL DIRECTOR/EMBALMER/OWNER Work Phone: [facility] 06-21-2024 13:50-0500 Systolic blood pressure 123 mm[Hg] Mala Hodgson MEDICAID BUSINESS ANALYST.FUNERAL DIRECTOR/EMBALMER/OWNER Work Phone: [facility] 06-07-2024 08:13-0400 Body temperature 97.9 [degF] Krislyn Aberegg PA Work Phone: [facility] [facility] 06-07-2024 08:13-0400 Body weight 117 kg Krislyn Aberegg PA Work Phone: [facility] 06-07-2024 08:13-0400 Diastolic blood pressure 84 mm[Hg] Krislyn Aberegg PA Work Phone: [facility] 06-07-2024 08:13-0400 Heart rate 105 /min Krislyn Aberegg PA Work Phone: [facility] 06-07-2024 08:13-0400 Respiratory rate 20 /min Krislyn Aberegg PA Work Phone: [facility] 06-07-2024 08:13-0400 SaO2% (BldA) [Mass fraction] 98 % Krislyn Aberegg PA Work Phone: [facility] 06-07-2024 08:13-0400 Systolic blood pressure 123 mm[Hg] Krislyn Aberegg PA Work Phone: [facility] 06-05-2024 09:24-0400 Body temperature 98.01 [degF] Krislyn Aberegg PA Work Phone: [facility] 06-05-2024 09:24-0400 Body weight 117.94 kg Krislyn Aberegg PA Work Phone: [facility] 06-05-2024 09:24-0400 Diastolic blood pressure 68 mm[Hg] Krislyn Aberegg PA Work Phone: [facility] 06-05-2024 09:24-0400 Heart rate 104 /min Krislyn Aberegg PA Work Phone: [facility] 06-05-2024 09:24-0400 Respiratory rate 16 /min Krislyn Aberegg PA Work Phone: [facility] 06-05-2024 09:24-0400 SaO2% (BldA) [Mass fraction] 98 % Krislyn Aberegg PA Work Phone: [facility] 06-05-2024 09:24-0400 Systolic blood pressure 110 mm[Hg] Krislyn Aberegg PA Work Phone: [facility] 04-17-2024 15:20-0400 Body temperature 99 [degF] Benjamin Leonardo APRN.FUNERAL DIRECTOR/EMBALMER/OWNER Work Phone: [facility] 04-17-2024 15:20-0400 Body weight 118.5 kg Benjamin Leonardo APRN.FUNERAL DIRECTOR/EMBALMER/OWNER Work Phone: [facility] 04-17-2024 15:20-0400 Diastolic blood pressure 82 mm[Hg] Benjamin Jorden MEDICAID BUSINESS ANALYST.FUNERAL DIRECTOR/EMBALMER/OWNER Work Phone: [facility] 04-17-2024 15:20-0400 Heart rate 122 /min Benjamin Jorden MEDICAID BUSINESS ANALYST.FUNERAL DIRECTOR/EMBALMER/OWNER Work Phone: [facility] 04-17-2024 15:20-0400 Respiratory rate 18 /min Benjamin Jorden MEDICAID BUSINESS ANALYST.FUNERAL DIRECTOR/EMBALMER/OWNER Work Phone: [facility] 04-17-2024 15:20-0400 SaO2% (BldA) [Mass fraction] 98 % Benjamin Jorden MEDICAID BUSINESS ANALYST.FUNERAL DIRECTOR/EMBALMER/OWNER Work Phone: [facility] 04-17-2024 15:20-0400 Systolic blood pressure 122 mm[Hg] Benjamin Jorden MEDICAID BUSINESS ANALYST.FUNERAL DIRECTOR/EMBALMER/OWNER Work Phone: [facility] 12-16-2023 10:53-0400 Body temperature 97 [degF] Nimco Praisler-Wood MEDICAID BUSINESS ANALYST.FUNERAL DIRECTOR/EMBALMER/OWNER Work Phone: [facility] 12-16-2023 10:53-0400 Body weight 116 kg Nimco Praisler-Wood MEDICAID BUSINESS ANALYST.FUNERAL DIRECTOR/EMBALMER/OWNER Work Phone: [facility] 12-16-2023 10:53-0400 Diastolic blood pressure 86 mm[Hg] Nimco Praisler-Wood MEDICAID BUSINESS ANALYST.FUNERAL DIRECTOR/EMBALMER/OWNER Work Phone: [facility] 12-16-2023 10:53-0400 Heart rate 92 /min Nimco Praisler-Wood MEDICAID BUSINESS ANALYST.FUNERAL DIRECTOR/EMBALMER/OWNER Work Phone: [facility] 12-16-2023 10:53-0400 Respiratory rate 22 /min Nimco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
[2025-02-01 20:11] VITALS: BP 122/94; PULSE 88; RESP 16; TEMP 36.8; O2SAT 98
== END 2025-02-01 20:25 | disposition home or self-care (01) ==
PROVIDERS: Emergency Provider Emergency Medicine; Referring Provider Emergency Medicine; Visit Provider Emergency Medicine
DX: M25.512 Pain in left shoulder (principal); F31.9 Bipolar disorder, unspecified; R20.2 Paresthesia of skin
CPT/HCPCS: 73030; 96372; 99283

== ENCOUNTER 2025-04-16 20:48 | Emergency (ER) | payer MEDICAID, SELFPAY ==
[2025-04-16 20:48] VITALS: BP 143/114; PULSE 82; RESP 16; TEMP 36.6; O2SAT 98; BMI 41.1
[2025-04-16] MEDS: Smz/Tmp Ds Tablet 1 TABLET PO (22:49)
--- NOTE | 2025-04-16 22:56 | EX.ED.DYSGE1 ---
HPI History of Present Illness Chief Complaint: Wound Narrative Narrative: Chief complaint and HPI: 25-year-old female with past medical history of asthma, anxiety, PTSD presents for concern for MRSA infection. Patient states that her daughter has a history of MRSA in which she is a chronic colonizer. She periodically develops boils in which she pops them for her child. Patient states that a couple days ago she popped one of the boils in which she thinks it may have landed on her cheek. She states 2 days ago she developed what appeared to be a zit on her right cheek. States that she popped this. It is now become mildly tender and erythematous and now she is concerned for MRSA. She denies any fever, chills, nausea, vomiting, headache. Review of systems: See HPI Medications: As listed on the chart Allergies: As listed on the chart PFSH: Per chart Vital signs: As listed on the chart. Reviewed. Physical exam: Gen: A&O x3, NAD Head: Normocephalic, atraumatic Eyes: No sclera icterus, conjunctiva clear, PERRL, EOMI ENT: TMs clear BL, moist mucous membranes, posterior oropharynx unremarkable, uvula midline, tonsils not enlarged, no tonsillar exudates, no dental infection, tolerating secretions, normal phonation, no submandibular or mouth swelling, patient has a 0.5 cm healing scab on her right cheek that is mildly tender to palpation. There is mild erythema and swelling to the area. No fluctuance or induration. No angioedema or periorbital edema. Neck: Trachea midline, No JVD, Full ROM, No meningismus, no lymphadenopathy, no swelling CV: RRR, no murmurs, no peripheral edema Resp: Lungs CTA BL, no w/r/c Musc: Full ROM, no deformity Skin: Warm, dry, no rash Neuro: Alert, oriented, grossly intact, sensation intact Psych: Cooperative, appropriate mood and affect [facility] Medical History Generalized anxiety disorder PTSD (post-traumatic stress disorder) Bipolar 1 disorder Mild hyperemesis gravidarum Genital herpes simplex Segmental and somatic dysfunction of cervical region Segmental and somatic dysfunction of lumbar region Segmental and somatic dysfunction of thoracic region Cervicogenic headache Lupus Hypoglycemia Bilateral headaches Anxiety Asthma Environmental allergies Home Medications ?Medication ?Instructions ?Recorded ?Last Taken ?Type cyclobenzaprine 10 mg tablet 10 mg PO TID PRN muscle spasm #20 02/01/25 Unknown Rx tabs escitalopram oxalate 10 mg tablet 15 mg PO DAILY 04/16/25 Unknown History (Lexapro) sulfamethoxazole 800 1 tab PO BID 7 days #14 tabs 04/16/25 Unknown Rx mg-trimethoprim 160 mg tablet (Bactrim DS) Allergy/AdvReac Type Severity Reaction Status Date / Time zolpidem (From Ambien) AdvReac Other Verified 04/16/25 20:49 Family History Other CVA (cerebral vascular accident) Colon cancer Heart disease Hypertension Surgical History Previous section Left knee injury History of tonsillectomy and adenoidectomy Social History household members: family housing: house Smoking Status: Never smoker alcohol intake: never substance use type: does not use what type of physical activity do you participate in: none EXAM Physical Exam Const Vital Signs: 04/16/25 20:48 Temperature 98 F Temperature Source Temporal Pulse Rate 82 Respiratory Rate 16 Blood Pressure 143/114 H Blood Pressure Mean 123 Pulse Ox 98 MDM MDM MDM Narrative Medical decision making narrative: 25-year-old female with past medical history of asthma, anxiety, PTSD presents for concern for MRSA infection. Patient states that her daughter has a history of MRSA in which she is a chronic colonizer. She periodically develops boils in which she pops them for her child. Patient states that a couple days ago she popped one of the boils in which she thinks it may have landed on her cheek. She states 2 days ago she developed what appeared to be a zit on her right cheek. States that she popped this. It is now become mildly tender and erythematous and now she is concerned for MRSA. On presentation, patient no acute distress. Afebrile. Nontoxic-appearing. Physical exam is unremarkable except for a healing 0.5 cm scab to the right cheek. Mildly tender to palpation with erythema. No fluctuance or induration. Appears that it is a healing previous acne however cannot rule out early cellulitis. Given that patient's daughter has a history of MRSA we will treat with Bactrim. I do not think any labs or imaging is needed. First dose of Bactrim given here. Follow-up with PCP. She does understand the plan. Patient will discharge home. Impression: 1. Right cheek wound 2. Possible early right cheek cellulitis 3. Recent MRSA exposure Discharge Plan Triage Chief Complaint: Wound ED Provider: Dany Doe Dx/Rx/DC Orders Clinical Impression: Cellulitis of cheek Instructions: Cellulitis Dc Prescriptions: New sulfamethoxazole-trimethoprim [Bactrim DS] 800-160 mg tablet 1 tab PO BID 7 Days Qty: 14 0RF No Action cyclobenzaprine 10 mg tablet 10 mg PO TID PRN (Reason: muscle spasm) Qty: 20 0RF escitalopram oxalate [Lexapro] 10 mg tablet 15 mg PO DAILY Primary Care Provider: Ghislaine Cassidy Referrals: Ghislaine Cassidy MD [Primary Care Provider] - 3-5 Days Activity Restrictions/Additional Instructions: Take all of your antibiotics. He received the first dose here in the emergency department. Tylenol Motrin as needed for pain. Follow-up with your primary care physician. Return back to ED if symptoms change or worsen. Print Language: Latvian Disposition Disposition: Home, Self Care
[2025-04-16 23:13] VITALS: BP 121/94; PULSE 76; RESP 17; TEMP 37.1; O2SAT 100
== END 2025-04-16 23:14 | disposition home or self-care (01) ==
PROVIDERS: Emergency Provider Surgery; PCP Pediatrics; Visit Provider Surgery
DX: L03.211 Cellulitis of face (principal); F41.9 Anxiety disorder, unspecified; J45.909 Unspecified asthma, uncomplicated; Z22.322 Carrier or suspected carrier of Methicillin resistant Staphylococcus aureus
CPT/HCPCS: 99282

== ENCOUNTER 2025-05-28 19:24 | Emergency (ER) | payer MEDICAID, SELFPAY ==
[2025-05-28 19:25] VITALS: BP 138/76; PULSE 97; RESP 22; TEMP 36.8; O2SAT 100; BMI 40.5
== END 2025-05-28 20:17 | disposition left against medical advice (07) ==
LOC: ED 20:20
PROVIDERS: PCP Pediatrics
DX: Z53.21 Procedure and treatment not carried out due to patient leaving prior to being seen by health care provider (principal)